=== PATIENT | female | born 1980 | race Caucasian/White ===

== ENCOUNTER 2016-04-13 14:57 | Emergency (ER) | payer MEDICAID ==
--- NOTE | 2016-04-13 16:27 | RAD ---
Indication: Cough, chest pain. 2 views of the chest are reviewed. Dual-energy PA views were obtained. Comparison is made with previous exam dated December 17, 2008. No mediastinal shift is noted. Heart is of normal size and configuration. Lung simental appear clear. IMPRESSION: No active cardiopulmonary disease is noted.
[2016-04-13 16:58] LABS: Urine Bilirubin Negative (Negative); Urine Glucose Negative (Negative); Urine Nitrite Negative (Negative)
[2016-04-13] MEDS ORDERED: Albuterol/Ipratropium NEB.SOL* Albuterol 2.5 MG/Ipratropium 0.5 MG 3 ML INH ONE (16:59)
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
[2016-04-13 17:50] LABS: Hematocrit 45 % (35-47); Mean Corpuscular HGB Conc 33 g/dl (31-36); Mean Corpuscular Hemoglobin 28 pg (27-31); Mean Corpuscular Volume 85 fL (80-97); Mean Platelet Volume 9 um3 (7.4-10.4); Red Blood Count 5.32 10^6/ul (4.0-5.4); Red Cell Distribution Width 14 % (10.5-15); White Blood Count 4.6 10^3/ul (3.5-10.8)
[2016-04-13 18:06] LABS: ALT 15 U/L (7-52); AST 23 U/L (13-39); Albumin 4.3 g/dL (3.2-5.2); Alkaline Phosphatase 90 U/L (34-104); Anion Gap 9 mmol/L (2-11); BUN/Creatinine Ratio 12.8 (8-20); Blood Urea Nitrogen 10 mg/dL (6-24); C Reactive Protein 6.61 mg/L (< 5.00); CO2 Carbon Dioxide 23 mmol/L (22-32); Calcium 9.7 mg/dL (8.6-10.3); Chloride 102 mmol/L (101-111); EGFR African American 108.1 (>60); Globulin 3.4 g/dL (2-4); Glucose 82 mg/dL (70-100); Lipase 10 U/L (11.0-82.0); Potassium 3.3 mmol/L (3.5-5.0); Sodium 134 mmol/L (133-145); Total Protein 7.7 g/dL (6.4-8.9)
[2016-04-13 18:08] LABS: Troponin I 0.01 ng/mL (<0.04)
[2016-04-13] MEDS ORDERED: Oseltamivir CAP* 75 MG PO ONE (18:20)
[2016-04-13] MEDS ORDERED: Ketorolac INJ* 30 MG/ML 1 ML VIAL IV PUSH ONE (18:20)
--- NOTE | 2016-04-13 19:01 | RAD ---
Indication: Left lower quadrant pain. CT of the abdomen and pelvis was performed without oral or IV contrast administration. Coronal and sagittal reconstructed images were obtained. Lung simental demonstrate emphysematous changes. No pleural fluid is identified. The heart demonstrates no pericardial effusion. The liver is normal in size. No focal lesions or intrahepatic ductal dilatation is noted. Gallbladder demonstrates no calcified gallstones. No pericholecystic fluid or wall thickening is identified. The spleen is normal in size. Pancreas demonstrates no mass or pancreatic duct dilatation. The common duct is not dilated. No adrenal lesions are noted. The kidneys demonstrates no hydronephrosis or calculi in either kidney. Aorta and inferior vena cava are unremarkable. No abnormally dilated loops of bowel are noted. CT of the pelvis demonstrates diverticulosis without definite evidence of diverticulitis. There is suggestion of a left ovarian cyst measuring up to 3.9 cm. The left ovary may also be enlarged. No free fluid is identified. The colon is filled with stool. IMPRESSION: No evidence of obstructive uropathy is noted. There is suggestion of a 3.9 cm cyst in the left ovary with suggestion of an enlarged left ovary. No definite diverticulitis is noted. Evaluation is limited due to lack of oral and IV contrast.
[2016-04-13 20:06] VITALS: BP 132/80
== END 2016-04-13 20:02 | disposition home or self-care (01) ==
LOC: ED 14:57
DX: J09.X2 Influenza due to identified novel influenza A virus with other respiratory manifestations (principal); N83.209 Unspecified ovarian cyst, unspecified side; R10.32 Left lower quadrant pain; F17.210 Nicotine dependence, cigarettes, uncomplicated; R11.10 Vomiting, unspecified; R19.7 Diarrhea, unspecified; R05 Cough
CPT/HCPCS: 36415; 71020; 74176; 80053; 81003; 83605; 83690; 84484; 84702; 85025; 86140; 87502; 93005; 94640; 96374; 99283; A9270-GY; J1885

== ENCOUNTER 2016-04-21 12:21 | Emergency (ER) | payer MEDICAID ==
[2016-04-21 12:38] VITALS: BP 130/88
--- NOTE | 2016-04-21 13:04 | UC ---
Respiratory Complaint HPI - HPI Summary HPI Summary: Dx with influenza 04/13/16 in the ED. At that time had fever, n/v, cough, trouble breathing. Has continued to have productive cough, achy chest, and chills. Does not feel better after tamiflu. - History of Current Complaint Chief Complaint: UCRespiratory Stated Complaint: FLU-LIKE SYMPTOMS,V&D,WEAK Time Seen by Provider: 04/21/16 12:41 Hx Obtained From: Patient Hx Last Menstrual Period: 04/16/16 ?: No Onset/Duration: Gradual Onset, Lasting Weeks Timing: Constant Severity Initially: Moderate Severity Currently: Moderate Character: Cough: Productive Aggravating Factors: Exertion, Deep Breaths, Recumbent Position Associated Signs And Symptoms: Positive: Fever - resolved, Wheezing, URI, Nasal Congestion - Allergies/Home Medications Allergies/Adverse Reactions: Allergies Allergy/AdvReac Type Severity Reaction Status Date / Time Sulfamethoxazole Allergy Intermediate SWELLING, Verified 04/21/16 12:38 w/Trimethoprim RASH, [From Bactrim] ITCHING Penicillins Allergy Swelling Verified 04/21/16 12:38 Of Face,Lips,& Throat bee sting Allergy Swelling Uncoded 04/21/16 12:38 Of Face,Lips,& Throat PMH/Surg Hx/FS Hx/Imm Hx Cardiovascular History Of: Reports: Hypertension Respiratory History Of: Reports: COPD, Asthma GI/ History Of: Denies: Gall Bladder Disease, Kidney Stones Psychological History Of: Reports: Depression, Bipolar Disorder - Surgical History Surgical History: None - Family History Known Family History: Positive: Cardiac Disease - father, Respiratory Disease - Father - at 58 y.o. - emphysema w/ recurrent pneumonia, Other - MOTHER - BIPOLAR, SCHIZOAFFECTIVE - Social History Occupation: Unemployed Alcohol Use: None Substance Use Type: Marijuana Substance Use Comment - Amount & Last Used: just prior to arrival Smoking Status (MU): Current Every Day Smoker Type: Cigarettes Amount Used/How Often: 1 1/2 ppd Length of Time of Smoking/Using Tobacco: "Way to long" Household Exposure Type: Cigarettes Cessation Counseling: Counseled 3+Min - 10 Min - Immunization History Most Recent Influenza Vaccination: pt states she does not know Most Recent Tetanus Shot: pt states she does not know Most Recent Pneumonia Vaccination: pt states she does not know Review of Systems Constitutional: Fever, Chills, Fatigue Skin: Negative Eyes: Negative ENT: Nasal Discharge Respiratory: Shortness Of Breath, Cough Cardiovascular: Negative Gastrointestinal: Vomiting Genitourinary: Negative Motor: Negative Neurovascular: Negative Musculoskeletal: Negative Neurological: Negative Psychological: Negative All Other Systems Reviewed And Are Negative: Yes Physical Exam Triage Information Reviewed: Yes Appearance: No Pain Distress, Well-Nourished Vital Signs: Initial Vital Signs Temp 98 F 04/21/16 12:32 Pulse 67 04/21/16 12:32 Resp 20 04/21/16 12:32 BP 130/88 04/21/16 12:32 Pulse Ox 100 04/21/16 12:32 Vital Signs Reviewed: Yes Eye Exam: Normal Eyes: Positive: Conjunctiva Clear ENT: Positive: Hearing grossly normal, Pharynx normal, Nasal congestion, Nasal drainage, TMs normal Dental Exam: Normal Neck exam: Normal Neck: Positive: Supple, Nontender, No Lymphadenopathy Respiratory: Positive: No respiratory distress, Rhonchi - throughout, Wheezing - minimal Cardiovascular Exam: Normal Cardiovascular: Positive: RRR, No Murmur Abdomen Description: Positive: Soft. Negative: CVA Tenderness (R), CVA Tenderness (L) Musculoskeletal Exam: Normal Neurological Exam: Normal Psychological Exam: Normal Skin Exam: Normal UC Diagnostic Evaluation - Laboratory O2 Sat by Pulse Oximetry: 100 Respiratory Course/Dx - Differential Dx/Diagnosis Provider Diagnoses: Influenza, resolving. COPD exacerbation Discharge - Discharge Plan Condition: Stable Disposition: HOME Prescriptions: Azithromycin TAB* [Zithromax TAB*] 250 mg PO SEE INSTRUCTIONS #6 tab predniSONE TAB* [Deltasone TAB*] 50 mg PO DAILY #5 tab Patient Education Materials: Influenza (ED), COPD (Chronic Obstructive Pulmonary Disease) (ED) Referrals: No Primary Care Phys,NOPCP [Primary Care Provider] - Additional Instructions: Call or return if you develop increasing fever, shortness of breath, chest pain , bloody sputum, or otherwise worsen. If you have not improved at all after several days, contact your primary care physician or return here.
== END 2016-04-21 13:04 | disposition home or self-care (01) ==
LOC: UCEAST 12:21
DX: J11.1 Influenza due to unidentified influenza virus with other respiratory manifestations (principal); J44.1 Chronic obstructive pulmonary disease with (acute) exacerbation; Z88.0 Allergy status to penicillin; Z88.2 Allergy status to sulfonamides; F12.90 Cannabis use, unspecified, uncomplicated; F17.210 Nicotine dependence, cigarettes, uncomplicated; Z71.6 Tobacco abuse counseling
CPT/HCPCS: 99212; G0463

== ENCOUNTER 2018-08-31 15:03 | Emergency (ER) | payer OTHER ==
[2018-08-31 15:45] VITALS: BP 134/84
--- NOTE | 2018-08-31 16:36 | UC ---
Lower Extremity/Ankle HPI - HPI Summary HPI Summary: Pt presents with c/o left ankle pain and left posterior calf pain s/p slipping down a flight of stairs yesterday. Pt denies hitting her head or LOC. - History of Current Complaint Chief Complaint: UCLowerExtremity Stated Complaint: LEFT ANKLE CONCERN/COUGH,CONGESTION Time Seen by Provider: 08/31/18 16:07 Hx Obtained From: Patient Hx Last Menstrual Period: 08/26/18 ?: No Onset/Duration: Sudden Onset Severity Initially: Moderate Severity Currently: Severe Pain Intensity: 10 Aggravating Factor(s): Standing, Ambulation Alleviating Factor(s): Rest Able to Bear Weight: Yes - painful - Risk Factors Gout Risk Factors: Negative DVT Risk Factors: Negative Septic Arthritis Risk Factor: Negative - Allergies/Home Medications Allergies/Adverse Reactions: Allergies Allergy/AdvReac Type Severity Reaction Status Date / Time Penicillins Allergy Swelling Verified 08/31/18 15:40 Of Face,Lips,& Throat sulfamethoxazole Allergy swelling, Verified 08/31/18 15:40 [From Bactrim] rash, itching trimethoprim [From Bactrim] Allergy swelling, Verified 08/31/18 15:40 rash, itching bee sting Allergy Swelling Uncoded 08/31/18 15:40 Of Face,Lips,& Throat PMH/Surg Hx/FS Hx/Imm Hx Previously Healthy: Yes - Surgical History Surgical History: Yes Surgery Procedure, Year, and Place: TUBAL - Family History Known Family History: Positive: Cardiac Disease - father, Respiratory Disease - Father - at 58 y.o. - emphysema w/ recurrent pneumonia, Other - MOTHER - BIPOLAR, SCHIZOAFFECTIVE - Social History Occupation: Unemployed Lives: With Family Alcohol Use: None Substance Use Type: None Substance Use Comment - Amount & Last Used: just prior to arrival Smoking Status (MU): Never Smoked Tobacco Type: Cigarettes Amount Used/How Often: 1/2 ppd Length of Time of Smoking/Using Tobacco: 21 yrs Have You Smoked in the Last Year: Yes Household Exposure Type: Cigarettes - Immunization History Most Recent Influenza Vaccination: pt states she does not know Most Recent Tetanus Shot: pt states she does not know Most Recent Pneumonia Vaccination: pt states she does not know Vaccination Up to Date: Yes Review of Systems All Other Systems Reviewed And Are Negative: Yes Constitutional: Positive: Negative Skin: Positive: Negative Eyes: Positive: Negative ENT: Positive: Negative Respiratory: Positive: Negative Cardiovascular: Positive: Negative Gastrointestinal: Positive: Negative Genitourinary: Positive: Negative Motor: Positive: Decreased ROM - left ankle Neurovascular: Positive: Negative Musculoskeletal: Positive: Arthralgia - left ankle, Decreased ROM - left ankle, Edema - left ankle/lateral, Myalgia Neurological: Positive: Negative Psychological: Positive: Negative Is Patient Immunocompromised?: No Physical Exam Triage Information Reviewed: Yes Appearance: Pain Distress Vital Signs: Initial Vital Signs Temp 99.3 F 08/31/18 15:41 Pulse 72 08/31/18 15:41 Resp 16 08/31/18 15:41 BP 134/84 08/31/18 15:41 Pulse Ox 100 08/31/18 15:41 Vital Signs Reviewed: Yes Eye Exam: Normal ENT: Positive: Hearing grossly normal Respiratory: Positive: No respiratory distress Musculoskeletal: Positive: ROM Limited @ - left ankle, Edema @ - left lateral malleolus Neurological Exam: Normal Psychological Exam: Normal Skin Exam: Normal Diagnostics - Radiology No standard instances Radiology Interpretation Completed By: Radiologist - IMPRESSION: No fracture of the left ankle is noted. Lower Extremity Course/Dx - Differential Dx/Diagnosis Differential Diagnosis/HQI/PQRI: Fracture (Closed), Sprain, Strain Provider Diagnosis: Left ankle sprain Discharge - Sign-Out/Discharge Documenting (check all that apply): Patient Departure All imaging exams completed and their final reports reviewed: Yes - Discharge Plan Condition: Stable Disposition: HOME Patient Education Materials: Ankle Sprain (ED), R.I.C.E. Treatment (ED) Referrals: [facility] [place] [facility] [Outside] - If Needed Jeff Gleason MD [Medical Doctor] - If Needed No Primary Care Phys,NOPCP [Primary Care Provider] - Additional Instructions: Please follow up with your PCP or the orthopedic provider if your symptoms do not improve. - Billing Disposition and Condition Condition: STABLE Disposition: Home
== END 2018-08-31 17:03 | disposition home or self-care (01) ==
LOC: UCCORT 15:03
DX: S93.402A Sprain of unspecified ligament of left ankle, initial encounter (principal); W10.9XXA Fall (on) (from) unspecified stairs and steps, initial encounter; Y92.9 Unspecified place or not applicable; F17.210 Nicotine dependence, cigarettes, uncomplicated
CPT/HCPCS: 99213; G0463

== ENCOUNTER 2018-10-23 15:33 | Emergency (ER) | payer OTHER ==
[2018-10-23 16:34] LABS: Urine Appearance Cloudy; Urine Bilirubin Negative (Negative); Urine Blood Negative (Negative); Urine Color Yellow; Urine Glucose Negative (Negative); Urine Ketones Trace (Negative); Urine Nitrite Negative (Negative); Urine Protein Negative (Negative); Urine Specific Gravity 1.023 (1.010-1.030); Urine Urobilinogen Positive (Negative)
[2018-10-23 16:42] LABS: ALT 8 U/L (7-52); AST 14 U/L (13-39); Albumin 4.4 g/dL (3.2-5.2); Albumin/Globulin Ratio 1.6 (1-3); Alkaline Phosphatase 84 U/L (34-104); Anion Gap 6 mmol/L (2-11); BUN/Creatinine Ratio 17.3 (8-20); Blood Urea Nitrogen 13 mg/dL (6-24); CO2 Carbon Dioxide 25 mmol/L (22-32); Calcium 9.6 mg/dL (8.6-10.3); Chloride 106 mmol/L (101-111); EGFR African American 104.6 (>60); EGFR Non-African American 86.5 (>60); Globulin 2.7 g/dL (2-4); Glucose 90 mg/dL (70-100); Potassium 3.7 mmol/L (3.5-5.0); Sodium 137 mmol/L (135-145); Total Protein 7.1 g/dL (6.4-8.9)
[2018-10-23 16:50] LABS: ABS Basophils 0.1 10^3/ul (0-0.2); ABS Eosinophils 0.6 10^3/ul (0-0.6); ABS Lymphocytes 1.9 10^3/ul (1.0-4.8); ABS Monocytes 0.4 10^3/ul (0-0.8); Eosinophil % 7.3 %; Hematocrit 29 % (35-47); Hemoglobin 8.7 g/dL (12.0-16.0); Lymphocyte % 23.7 %; Mean Corpuscular HGB Conc 30 g/dL (31-36); Mean Corpuscular Hemoglobin 18 pg (27-31); Mean Corpuscular Volume 60 fL (80-97); Mean Platelet Volume 8.8 fL (7.4-10.4); Platelet Count 194 10^3/uL (150-450); Red Blood Count 4.91 10^6 /uL (3.70-4.87); Red Cell Distribution Width 19 % (10-15)
[2018-10-23 17:04] LABS: Urine Benzodiazepine Screen None Detected (None Detect); Urine Opiates Screen None Detected (None Detect)
[2018-10-23 17:08] LABS: Acetaminophen < 15 mcg/mL; Alcohol < 10 mg/dL (<10); Salicylate < 2.50 mg/dL (<30)
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
[2018-10-23 17:22] LABS: TSH (Thyroid Stimulating Horm) 0.99 mcIU/mL (0.34-5.60)
[2018-10-23 17:51] LABS: Microcytosis 2+; Polychromasia 1+
--- NOTE | 2018-10-23 19:01 | ED ---
Progress - Progress Note Progress Note: patient signed out by anton pending MHE. patient will be discharge home after evaluation per MH. Course/Dx - Course Course Of Treatment: Pt. presenting for MHE. Medically cleared. Pending MHE. after mental health patient will be discharge home per dr martin. - Diagnoses Provider Diagnoses: Depression Discharge ED - Sign-Out/Discharge Documenting (check all that apply): Patient Departure, Receiving Sign-Out Receiving patient FROM: Anton Fischer Patient Received Moderate/Deep Sedation with Procedure: No - Discharge Plan Condition: Stable Disposition: HOME Referrals: No Primary Care Phys,NOPCP [Primary Care Provider] - - Billing Disposition and Condition Condition: STABLE Disposition: Home
[2018-10-23 22:50] VITALS: BP 125/74
== END 2018-10-23 22:48 | disposition home or self-care (01) ==
LOC: ED 15:33
DX: F31.9 Bipolar disorder, unspecified (principal); D64.9 Anemia, unspecified; I10 Essential (primary) hypertension; J44.9 Chronic obstructive pulmonary disease, unspecified; Z88.0 Allergy status to penicillin; Z88.2 Allergy status to sulfonamides; Z91.030 Bee allergy status
CPT/HCPCS: 36415; 80053; 80307; 80320; 80329; 81003; 84443; 85025; 99284; G0480

== ENCOUNTER 2018-11-02 20:13 | Emergency (ER) | payer OTHER ==
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
[2018-11-02] MEDS ORDERED: Ketorolac INJ* 30 MG/ML 1 ML VIAL IV ONE (21:15)
[2018-11-02] MEDS ORDERED: NS 0.9% 1000 ML** 1,000 ML IV ONE (21:15)
[2018-11-02] MEDS ORDERED: methylPREDNISolone 125 MG* 2 ML VIAL IV ONE (21:15)
[2018-11-02] MEDS ORDERED: Albuterol/Ipratropium NEB.SOL* Albuterol 2.5 MG/Ipratropium 0.5 MG 3 ML INH ONE (21:15)
[2018-11-02 21:21] LABS: ABS Basophils 0.1 10^3/ul (0-0.2); ABS Eosinophils 0.7 10^3/ul (0-0.6); ABS Lymphocytes 2.4 10^3/ul (1.0-4.8); ABS Monocytes 0.4 10^3/ul (0-0.8); ABS Neutrophils 4.8 10^3/ul (1.5-7.7); Eosinophil % 8.7 %; Hematocrit 29 % (35-47); Hemoglobin 9.1 g/dL (12.0-16.0); Lymphocyte % 28.3 %; Mean Corpuscular HGB Conc 32 g/dL (31-36); Mean Corpuscular Hemoglobin 19 pg (27-31); Mean Corpuscular Volume 60 fL (80-97); Mean Platelet Volume 9.5 fL (7.4-10.4); Nucleated Red Blood Cells % 0.1; Platelet Count 168 10^3/uL (150-450); Red Blood Count 4.74 10^6 /uL (3.70-4.87); Red Cell Distribution Width 19 % (10-15); White Blood Count 8.5 10^3/uL (3.5-10.8)
[2018-11-02 21:27] LABS: ALT 7 U/L (7-52); Albumin/Globulin Ratio 1.7 (1-3); Alkaline Phosphatase 92 U/L (34-104); BUN/Creatinine Ratio 17.8 (8-20); Blood Urea Nitrogen 13 mg/dL (6-24); C Reactive Protein 1.36 mg/L (<8.01); CO2 Carbon Dioxide 24 mmol/L (22-32); Calcium 9.2 mg/dL (8.6-10.3); Chloride 107 mmol/L (101-111); EGFR Non-African American 89.2 (>60); Globulin 2.4 g/dL (2-4); Glucose 89 mg/dL (70-100); Sodium 136 mmol/L (135-145); Total Protein 6.4 g/dL (6.4-8.9)
[2018-11-02 21:33] LABS: HCG Pregnancy < 0.60 mIU/mL
[2018-11-02 21:45] LABS: Anion Gap 5 mmol/L (2-11)
[2018-11-02 22:17] LABS: Urine Appearance Clear; Urine Bilirubin Negative (Negative); Urine Blood Negative (Negative); Urine Color Straw; Urine Glucose Negative (Negative); Urine Ketones Negative (Negative); Urine Nitrite Negative (Negative); Urine Protein Negative (Negative); Urine Specific Gravity 1.004 (1.010-1.030); Urine Urobilinogen Negative (Negative)
[2018-11-02] MEDS ORDERED: Azithromycin TAB* 250 MG PO ONE (22:38)
[2018-11-02 22:58] VITALS: BP 117/68
== END 2018-11-02 23:07 | disposition home or self-care (01) ==
LOC: ED 20:13
DX: J45.901 Unspecified asthma with (acute) exacerbation (principal); N83.202 Unspecified ovarian cyst, left side; D64.9 Anemia, unspecified; I10 Essential (primary) hypertension; J44.9 Chronic obstructive pulmonary disease, unspecified; F31.9 Bipolar disorder, unspecified; F17.210 Nicotine dependence, cigarettes, uncomplicated; Z79.899 Other long term (current) drug therapy; Z88.1 Allergy status to other antibiotic agents; Z88.0 Allergy status to penicillin; Z88.2 Allergy status to sulfonamides
CPT/HCPCS: 36415; 71046; 76856; 80053; 81003; 83605; 83690; 84702; 85025; 86140; 96361; 96374; 96375; 99283; A9270-GY; J1885; J2930

== ENCOUNTER 2018-11-07 20:46 | Emergency (ER) | payer OTHER ==
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
[2018-11-07 21:44] LABS: ABS Lymphocytes 0.7 10^3/ul (1.0-4.8); ABS Monocytes 0.2 10^3/ul (0-0.8); ABS Neutrophils 8.4 10^3/ul (1.5-7.7); Eosinophil % 0.2 %; Hematocrit 30 % (35-47); Hemoglobin 8.2 g/dL (12.0-16.0); Lymphocyte % 6.9 %; Mean Corpuscular HGB Conc 28 g/dL (31-36); Mean Corpuscular Hemoglobin 18 pg (27-31); Mean Corpuscular Volume 64 fL (80-97); Mean Platelet Volume 9.1 fL (7.4-10.4); Nucleated Red Blood Cells % 0.1; Platelet Count 179 10^3/uL (150-450); Red Blood Count 4.68 10^6 /uL (3.70-4.87); Red Cell Distribution Width 20 % (10-15); White Blood Count 9.4 10^3/uL (3.5-10.8)
[2018-11-07 21:52] LABS: ALT 8 U/L (7-52); AST 11 U/L (13-39); Albumin/Globulin Ratio 1.7 (1-3); Alkaline Phosphatase 87 U/L (34-104); Anion Gap 9 mmol/L (2-11); BUN/Creatinine Ratio 21.4 (8-20); Blood Urea Nitrogen 18 mg/dL (6-24); CO2 Carbon Dioxide 22 mmol/L (22-32); Chloride 107 mmol/L (101-111); EGFR African American 91.8 (>60); EGFR Non-African American 75.9 (>60); Globulin 2.4 g/dL (2-4); Glucose 118 mg/dL (70-100); Potassium 4.2 mmol/L (3.5-5.0); Sodium 138 mmol/L (135-145); Total Protein 6.4 g/dL (6.4-8.9)
[2018-11-07 21:59] LABS: HCG Pregnancy < 0.60 mIU/mL
[2018-11-07 22:37] LABS: Urine Appearance Clear; Urine Bacteria Absent (Absent); Urine Bilirubin Negative (Negative); Urine Blood 1+ (Negative); Urine Color Yellow; Urine Glucose Negative (Negative); Urine Ketones Trace (Negative); Urine Nitrite Negative (Negative); Urine Protein Negative (Negative); Urine Red Blood Cell Trace(0-2/hpf) (Absent); Urine Specific Gravity 1.024 (1.010-1.030); Urine Squamous Epithelial Cell Present (Absent); Urine Urobilinogen Positive (Negative); Urine White Blood Cell Absent (Absent)
[2018-11-07 22:44] VITALS: BP 129/59
[2018-11-08 13:47] LABS: Chlamydia trachomatis NAA Negative (Negative); Neisseria gonorrhoeae (GC) NAA Negative (Negative)
== END 2018-11-07 22:43 | disposition home or self-care (01) ==
LOC: ED 20:46
DX: N93.9 Abnormal uterine and vaginal bleeding, unspecified (principal); N83.202 Unspecified ovarian cyst, left side; D64.9 Anemia, unspecified; I10 Essential (primary) hypertension; J44.9 Chronic obstructive pulmonary disease, unspecified; F17.210 Nicotine dependence, cigarettes, uncomplicated
CPT/HCPCS: 36415; 80053; 81003; 81015; 84702; 85025; 87480; 87491; 87510; 87591; 87661; 99283

== ENCOUNTER 2018-11-08 18:32 | Emergency (ER) | payer OTHER ==
[2018-11-08 19:28] LABS: ABS Basophils 0.2 10^3/ul (0-0.2); ABS Eosinophils 0.3 10^3/ul (0-0.6); ABS Lymphocytes 3.6 10^3/ul (1.0-4.8); ABS Monocytes 0.7 10^3/ul (0-0.8); ABS Neutrophils 6.8 10^3/ul (1.5-7.7); Eosinophil % 2.6 %; Hematocrit 27 % (35-47); Hemoglobin 8.4 g/dL (12.0-16.0); Lymphocyte % 31.3 %; Mean Corpuscular HGB Conc 31 g/dL (31-36); Mean Corpuscular Hemoglobin 18 pg (27-31); Mean Corpuscular Volume 59 fL (80-97); Mean Platelet Volume 9.1 fL (7.4-10.4); Nucleated Red Blood Cells % 0.1; Platelet Count 197 10^3/uL (150-450); Red Blood Count 4.63 10^6 /uL (3.70-4.87); Red Cell Distribution Width 19 % (10-15); White Blood Count 11.6 10^3/uL (3.5-10.8)
[2018-11-08 19:31] LABS: Urine Appearance Cloudy; Urine Bacteria Absent (Absent); Urine Bilirubin Negative (Negative); Urine Blood 2+ (Negative); Urine Color Yellow; Urine Glucose Negative (Negative); Urine Ketones Trace (Negative); Urine Nitrite Negative (Negative); Urine Protein Negative (Negative); Urine Red Blood Cell 2+(6-10/hpf) (Absent); Urine Specific Gravity 1.025 (1.010-1.030); Urine Squamous Epithelial Cell Present (Absent); Urine Urobilinogen Positive (Negative); Urine White Blood Cell Trace(0-5/hpf) (Absent)
[2018-11-08 19:42] LABS: ALT 8 U/L (7-52); AST 13 U/L (13-39); Albumin 3.9 g/dL (3.2-5.2); Albumin/Globulin Ratio 1.5 (1-3); Alkaline Phosphatase 82 U/L (34-104); Anion Gap 7 mmol/L (2-11); BUN/Creatinine Ratio 19.8 (8-20); Blood Urea Nitrogen 18 mg/dL (6-24); CO2 Carbon Dioxide 26 mmol/L (22-32); Calcium 8.6 mg/dL (8.6-10.3); Chloride 106 mmol/L (101-111); EGFR African American 83.7 (>60); EGFR Non-African American 69.2 (>60); Globulin 2.6 g/dL (2-4); Glucose 102 mg/dL (70-100); Potassium 3.3 mmol/L (3.5-5.0); Sodium 139 mmol/L (135-145); Total Protein 6.5 g/dL (6.4-8.9)
[2018-11-08 19:43] LABS: Urine Benzodiazepine Screen None Detected (None Detect); Urine Opiates Screen None Detected (None Detect)
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
[2018-11-08 20:08] LABS: Alcohol < 10 mg/dL (<10); Salicylate < 2.50 mg/dL (<30)
[2018-11-08 20:28] LABS: Acetaminophen < 15 mcg/mL
--- NOTE | 2018-11-08 21:50 | ED ---
Progress - Progress Note Progress Note: Pt is a sign out from Dr. August pending MHE and disposition. Psych evaluation has been completed. Pt will be discharged with PCP follow up. Pt is agreeable with this plan. Course/Dx - Course Course Of Treatment: 38 y/o F poor disorder and schizophrenia presents with suicidal ideation. Physical examination anxious w well appearing, anxious and teaful female. Will have mental health evaluate. Pt is a sign out from Dr. August pending MHE and disposition. Psych evaluation has been completed. Pt will be discharged with PCP follow up. Pt is agreeable with this plan. - Diagnoses Provider Diagnoses: Suicidal ideations, Anxiety, Depression Discharge ED - Sign-Out/Discharge Documenting (check all that apply): Patient Departure - discharge, Receiving Sign-Out Receiving patient FROM: Malena August Patient Received Moderate/Deep Sedation with Procedure: No - Discharge Plan Condition: Stable Disposition: HOME Patient Education Materials: Depression (ED), Anxiety (ED), Suicide Prevention (ED) Referrals: Care [facility] [Outside] - 3 Days Additional Instructions: Per completion of a mental health evaluation, you are cleared for release and do not require inpatient psychiatric hospitalization at this time. Please go to nearest emergency room or call 911 if safety concerns arise or condition worsens. First thing in the morning, please call : [facility].............. [phone] For follow up. Important Phone Numbers: [facility] [phone] Suicide Prevention and Crisis Services........................ [phone] National Suicide Prevention Lifeline............................ 656-601-KLLR (4919) [facility]....................... [phone] Alcoholics Anonymous............................................... [phone] [facility].............. [phone] [place] [employer].............................................. Substance Abuse Treatment Programs [facility] [phone] Alcohol and Drug [facility] - Billing Disposition and Condition Condition: STABLE Disposition: Home - Attestation Statements Document Initiated by Melvae: Yes Documenting Scribe: Jeuss Bella Provider For Whom Brandy is Documenting (Include Credential): Franko Hdez MD Scribe Attestation: Jesus Stone, scribed for Franko Hdez MD on 11/09/18 at 0246. Scribe Documentation Reviewed: Yes Provider Attestation: The documentation as recorded by the Jesus fox accurately reflects the service I personally performed and the decisions made by me, Franko Hdez MD Status of Scribe Document: Viewed
[2018-11-08] MEDS ORDERED: Nicotine* 4MG (FRUIT FLAVOR) GUM PO PRN (23:05)
[2018-11-09] MEDS ORDERED: Lurasidone(*) 20 MG TAB PO ONE (00:45)
[2018-11-09] MEDS ORDERED: diPHENhydraMINE PO* 50 MG PO ONE (02:49)
[2018-11-09 03:05] VITALS: BP 127/61
--- NOTE | 2018-11-09 14:05 | PN ---
Progress Note - Progress Note Date of Service: 11/07/18 Note: Vaginal culture positive for gardnerella. I called and spoke with pt. today at 1402. Rx for flagyl sent to pharmacy. Pt. understands and agrees with plan.
== END 2018-11-09 03:18 | disposition home or self-care (01) ==
LOC: ED 18:32
DX: R45.851 Suicidal ideations (principal); F41.9 Anxiety disorder, unspecified; F32.9 Major depressive disorder, single episode, unspecified; F20.9 Schizophrenia, unspecified; D64.9 Anemia, unspecified; I10 Essential (primary) hypertension; J44.9 Chronic obstructive pulmonary disease, unspecified; Z98.51 Tubal ligation status; F17.210 Nicotine dependence, cigarettes, uncomplicated; Z79.899 Other long term (current) drug therapy; Z88.1 Allergy status to other antibiotic agents; Z88.0 Allergy status to penicillin; Z88.2 Allergy status to sulfonamides
CPT/HCPCS: 36415; 80053; 80307; 80320; 80329; 81003; 84443; 85025; 87077; 87086; 99285; A9270-GY; G0480

== ENCOUNTER 2018-11-09 16:56 | Inpatient (IN) | payer OTHER ==
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
[2018-11-09 17:41] LABS: Urine Appearance Cloudy; Urine Bacteria Absent (Absent); Urine Bilirubin Negative (Negative); Urine Blood 2+ (Negative); Urine Color Yellow; Urine Glucose Negative (Negative); Urine Ketones Negative (Negative); Urine Nitrite Negative (Negative); Urine Protein Negative (Negative); Urine Red Blood Cell Trace(0-2/hpf) (Absent); Urine Specific Gravity 1.017 (1.010-1.030); Urine Squamous Epithelial Cell Present (Absent); Urine Urobilinogen Negative (Negative); Urine White Blood Cell Trace(0-5/hpf) (Absent)
[2018-11-09 17:47] LABS: ABS Basophils 0.2 10^3/ul (0-0.2); ABS Eosinophils 0.5 10^3/ul (0-0.6); ABS Monocytes 0.7 10^3/ul (0-0.8); ABS Neutrophils 6.1 10^3/ul (1.5-7.7); Eosinophil % 4.4 %; Hematocrit 29 % (35-47); Hemoglobin 8.8 g/dL (12.0-16.0); Lymphocyte % 28.6 %; Mean Corpuscular HGB Conc 31 g/dL (31-36); Mean Corpuscular Hemoglobin 18 pg (27-31); Mean Corpuscular Volume 59 fL (80-97); Mean Platelet Volume 9.6 fL (7.4-10.4); Platelet Count 201 10^3/uL (150-450); Red Blood Count 4.82 10^6 /uL (3.70-4.87); Red Cell Distribution Width 19 % (10-15); White Blood Count 10.4 10^3/uL (3.5-10.8)
[2018-11-09 17:52] LABS: Urine Benzodiazepine Screen None Detected (None Detect); Urine Opiates Screen None Detected (None Detect)
[2018-11-09 17:55] LABS: ALT 8 U/L (7-52); AST 11 U/L (13-39); Albumin 4.1 g/dL (3.2-5.2); Albumin/Globulin Ratio 1.6 (1-3); Alkaline Phosphatase 77 U/L (34-104); Anion Gap 4 mmol/L (2-11); Blood Urea Nitrogen 16 mg/dL (6-24); CO2 Carbon Dioxide 27 mmol/L (22-32); Calcium 8.8 mg/dL (8.6-10.3); Chloride 105 mmol/L (101-111); EGFR African American 91.8 (>60); EGFR Non-African American 75.9 (>60); Globulin 2.5 g/dL (2-4); Glucose 105 mg/dL (70-100); Potassium 3.8 mmol/L (3.5-5.0); Sodium 136 mmol/L (135-145); Total Protein 6.6 g/dL (6.4-8.9)
[2018-11-09 18:08] LABS: Acetaminophen < 15 mcg/mL; Alcohol < 10 mg/dL (<10); Salicylate < 2.50 mg/dL (<30)
[2018-11-09 18:23] LABS: TSH (Thyroid Stimulating Horm) 2.06 mcIU/mL (0.34-5.60)
[2018-11-09] MEDS ORDERED: Acetaminophen TAB* 325 MG PO PRN (21:35)
[2018-11-09] MEDS ORDERED: Ibuprofen TAB* 800 MG PO PRN (21:36)
[2018-11-09] MEDS ORDERED: Al Hydrox/Mg Hydrox/Simet LIQ* 30 ML UDC PO PRN (21:36)
[2018-11-09] MEDS ORDERED: Albuterol 2.5 MG/3 ML NEB.SOL* (0.083%) INH PRN (21:37)
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
[2018-11-11] MEDS: Multivitamins/Minerals TAB PO SCH ×2 (07:32→09:37)
[2018-11-11] MEDS ORDERED: Lurasidone(*) 40 MG TAB PO SCH (09:00)
[2018-11-11] MEDS ORDERED: hydrOXYzine HCL TAB* 50 MG PO PRN (17:42)
[2018-11-12 09:21] VITALS: BP 136/73
[2018-11-12] MEDS: Multivitamins/Minerals TAB PO SCH (10:14)
--- NOTE | 2018-11-12 11:03 | PN ---
Subjective - Subjective Date of Service: 11/12/18 Service Type: 59935 Hosp care 15 min low complexity Subjective: Vangie Zhao entered her 72 hour notice on the 10 of November. She must be released , rescind the notice, or be taken to court by the . Vangie Zhao wants to leave mostly because she wants to be with her 1-year-old child and so "I can be the best mommy." When challenged by how she could have come to the hospital three times previously with suicidal thoughts and a desire to jump into traffic and to get her "meds adjusted." She was given 40 mg of Latuda and now is happy. She is unwilling to go higher ("I couldn't do it!"). Objective - General Observations Appearance: Neat Appears Stated Age: Yes Stature: WNL Posture: WNL Eye Contact: Intense Behavior/Activity: Peculiar, Agitated - Interaction Observations Attitude Towards Examiner: Cooperative, Anxious, Defensive Stated Mood: Dysphoric, Anxious Affect: Labile Speech Pattern/Tone: Clear, Perseverating, Loud Volume Thought Process: Coherent, Circumstantial, Miranda Perception: WNL Thought Content: Preoccupation/Ruminations Hallucination Type: None Delusion Type: None - Cognitive Function Orientation: A&O x 4 Level of Consciousness: Awake, Alert, Appropriate Cognition: Impaired Cognition Estimated Intelligence: Borderline Range Insight: Difficulty Acknowledging Presence of Psyciatric Problems Judgment Within Normal Limits: No Ability to Make Reasonable Decisions: Moderately Impaired - Medication Compliance Cooperative with Inpatient Medication Regimen: Yes - Group Participation Participates in Group Activities: Partial Assessment - Assessment Merits Inpatient Hospitalization: For Immediate Safety Inpatient DSM-V Dx: F31.9 Clinical Impression: Vangie Zhao is a 38-year-old woman with a 1-year-old child who has come to the emergency department multiple times with complaints of suicidal ideation with threats to walk into traffic and reported impulsivity, and is on the unit with a desire to restart Latuda 40 mg and then be discharged. Plan - Plan Treatment Plan: Name: VANGIE ROBLEDO Birthdate: 1980 [id number] Vangie Zhao has a 72-hour notice in. We need to plan on next steps to retain or release her. She will be discharged today. Continued Medication Management: Continue Outpt Medication Medications: Current Medications Acetaminophen (Tylenol Tab*) 650 mg PO Q4H PRN PRN Reason: PAIN; OR TEMP >101 Al Hydrox/Mg Hydrox/Simethicone (Maalox Plus*) 30 ml PO Q4H PRN PRN Reason: INDIGESTION Albuterol (Ventolin 2.5 Mg/3 Ml Neb.Becca*) 2.5 mg INH Q6H PRN PRN Reason: SOB/WHEEZING Hydroxyzine HCl (Atarax Tab*) 50 mg PO Q6H PRN PRN Reason: .ANXIETY Ibuprofen (Motrin Tab*) 800 mg PO Q8H PRN PRN Reason: PAIN - MODERATE Lurasidone HCl (Latuda) 40 mg PO DAILY [facility] Last Admin: 11/11/18 09:37 Dose: 40 mg Multivitamins/Minerals (Theragran/Minerals Tab*) 1 tab PO DAILY [facility] Last Admin: 11/12/18 10:14 Dose: 1 tab
--- NOTE | 2018-11-13 14:21 | DS ---
DISCHARGE SUMMARY: DATE OF ADMISSION: 11/09/18 DATE OF DISCHARGE: 11/12/18 PROVIDER: Jessie Edwards NP in Psychiatry. SUPERVISING PHYSICIAN: Dr. Bryant Smith.* (DICTATED BY JESSIE EDWARDS NP ) DIAGNOSIS: Bipolar 1 disorder. CONDITION AT THE TIME OF DISCHARGE: Improved, psychiatrically cleared, excitable, participated in groups, social with peers. She is eager for discharge. She did well here psychiatrically, no med changes were made. She will be attending [facility]. MENTAL STATUS EXAM: At the time of discharge, Vangie Zhao is excited. She is cooperative and makes very good eye contact. She is alert and oriented x4. Her grooming is adequate. Her speech pace is rapid. Her thought processes are logical. Her speech is pressured. She is not psychotic or delusional. She denies AH, VH, SI, and HI. Her insight and judgment are fair. She is willing to follow up and urged to see a therapist. DISCHARGE INSTRUCTIONS FOR THE PATIENT: A. Medications: 1. Albuterol 2.5 mg/3 mL nebulizer solution inhaled q. 6 hours p.r.n. shortness of breath or wheezing. 2. Albuterol inhaler 1 puff q. 6 hours p.r.n. shortness of breath or wheezing. 3. Ibuprofen 800 mg q. 8 hours p.r.n. moderate pain. 4. Latuda 40 mg at bedtime. 5. Flagyl 500 mg b.i.d. 6. Prednisone 40 mg daily. 7. Tramadol 50 mg q.12 hours p.r.n. severe pain. B. Diet is regular. C. Activities as tolerated. She is a non-smoker. There are no studies pending at the time of discharge. D. Follow-up care. She has an appointment with [facility] on Monday11/13/18 at 11:15 with Mercedes Braden. She also has an appointment with Dr. Johnson on 11/15/18 at 2 p.m. E. Disposition. She is going to her home where her child is and she lives next door to her mother. F. Substance abuse followup is not indicated. HOSPITAL COURSE: Part A: Chief complaint: "I called the people at [facility] and I told them I was going to run into traffic or overdose on medications, they came to my house with the police and the ambulance drove me here." Ms. Mi is known to the adult inpatient psychiatric unit from previous patient psychiatric admissions. She has diagnoses of intellectual disability, substance use disorders and consideration for PTSD. Last admission here was in 2016. She is currently prescribed Latuda 40 mg daily. She complains that she has felt unstable in her mood with high anxiety and difficulty with sleep and she has presented at least on 3 occasions before last night to request adjustment in her medications and she states each time she was discharged with referral to [facility], so she decided to call the emergency outreach services last night to "be taken seriously." She is very vague about her description of her symptoms. She informed this senior medical writer that she had submitted her 72-hour notice because she misses home and she misses being with her daughter. Part B. Psychiatric treatment was rendered: Vangie Zhao was admitted to the adult behavioral unit and placed on 15-minute checks for safety. Vangie Zhao missed her daughter very much, submitted a 72-hour notice indicating that that was the case and that she wanted to be "the best mommy." Vangie Zhao was excitable when told that she would be discharged. She did not have suicidal thoughts. She could not explain what changed other than she realized that last that what she had to live for was her daughter and that ending her life would be incompatible with that goal. I did discuss with her the possibility of increasing Latuda to 60 or 80 and she declined that saying it would be too much for her. No medication changes were made on this unit. The one she came in with were continued and nothing was discontinued She is on an atypical antipsychotic, so it should be noted that her hemoglobin A1c is 5.9, triglycerides are 89, cholesterol 135, LDL cholesterol 70, HDL cholesterol 47. Also her TSH is 2.06. Her toxicology screen reported a positive for cannabinoids. We did not meet with the family and no consults were entered. Vangie Zhao is improved. She no longer has urges to run into traffic. She states that she has the protective factor of her daughter to keep in mind. Although she originally requested a med change upon admission, she no longer wanted that upon discharge. I am curious about her commitment to taking medications every day and also curious about the impact that using marijuana is having on her thought processes. Nevertheless, she is future oriented and eager to share photos of her daughter as well as stories about that. She sat in the milieu loudly stating her delight that she is being discharged, rocking ecstatically back and forth on the chair even when chastened to please be careful because she might fall over. This excited behavior continued until her time of discharge. Vangie Zhao is wished well and we anticipate that her few days here were helpful. JESSIE EDWARDS, SALO [id number]/CPS #: [id number] MARYANN
== END 2018-11-12 14:30 | disposition home or self-care (01) | DRG 753 ==
LOC: ED 16:56 → BSU 20:20
PROVIDERS: ADMIT Psychiatry & Neurology Psychiatry; ATTEND Psychiatry & Neurology Psychiatry
DX: F31.9 Bipolar disorder, unspecified (principal); R45.851 Suicidal ideations; F41.9 Anxiety disorder, unspecified; J44.9 Chronic obstructive pulmonary disease, unspecified; F17.210 Nicotine dependence, cigarettes, uncomplicated; I10 Essential (primary) hypertension; E66.9 Obesity, unspecified; D50.9 Iron deficiency anemia, unspecified; F12.90 Cannabis use, unspecified, uncomplicated; F70 Mild intellectual disabilities; F43.10 Post-traumatic stress disorder, unspecified; Z79.52 Long term (current) use of systemic steroids; Z91.5 Personal history of self-harm; Z91.14 Patient's other noncompliance with medication regimen; Z91.410 Personal history of adult physical and sexual abuse; Z88.0 Allergy status to penicillin; Z88.1 Allergy status to other antibiotic agents; Z88.8 Allergy status to other drugs, medicaments and biological substances; Z68.27 Body mass index [BMI] 27.0-27.9, adult; Z81.8 Family history of other mental and behavioral disorders; Z91.19 Patient's noncompliance with other medical treatment and regimen; Z88.2 Allergy status to sulfonamides; Z91.030 Bee allergy status; Z82.49 Family history of ischemic heart disease and other diseases of the circulatory system; Z82.5 Family history of asthma and other chronic lower respiratory diseases
CPT/HCPCS: 36415; 80053; 80061; 80307; 80320; 80329; 81003; 81015; 83036; 84443; 85025; 99222; 99238; 99285; A9270-GY; G0480

== ENCOUNTER 2018-11-23 18:04 | Emergency (ER) | payer OTHER ==
[2018-11-23] MEDS ORDERED: Ketorolac *IM* INJ* 60 MG/2 ML VIAL IM ONE (18:09)
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
[2018-11-23 20:36] VITALS: BP 110/53
== END 2018-11-23 20:35 | disposition home or self-care (01) ==
LOC: ED 18:04
DX: S93.401A Sprain of unspecified ligament of right ankle, initial encounter (principal); X58.XXXA Exposure to other specified factors, initial encounter; Y92.9 Unspecified place or not applicable; D64.9 Anemia, unspecified; I10 Essential (primary) hypertension; J44.9 Chronic obstructive pulmonary disease, unspecified; Z88.0 Allergy status to penicillin; Z88.2 Allergy status to sulfonamides; Z88.1 Allergy status to other antibiotic agents; Z91.030 Bee allergy status; F17.210 Nicotine dependence, cigarettes, uncomplicated
CPT/HCPCS: 99282; J1885

== ENCOUNTER 2019-01-11 21:00 | Emergency (ER) | payer MEDICARE, MEDICAID ==
--- OUTSIDE RECORDS SUMMARY | 2019-01-11 21:07 | XMS REPORT ---
:1980 Author Name [place] [address] Care Team Providers Name Role Phone Mercedes Braden Unavailable Unavailable Elizabeth, Graham Unavailable Unavailable Allergies, Adverse Reactions, Alerts Allergy Code CodeSystem Reaction Severity Status Substance RxNorm Medications Medication Medication Medication Start Route Dose Status Fill Code CodeSystem Date Instructions RxNorm NoCurrentDosage No NoCurrentFrequency Longer Active Latuda RxNorm oral 40 mg tablet No for 30 Longer day(s) Active Latuda RxNorm 2019- oral 20 mg 1 tablet Active Take 1 tablet 7-09 once a day by mouth once a day for 30 day(s) Hospital Discharge Medications Medication Direction Start Date Status Indications Fill Instuctions No Discharge Medication Problems Problem Name Code CodeSystem Start Date End Date Status SNOMED-CT 2018-05-11 Active SNOMED-CT 2018-07-27 Active SNOMED-CT 2018-07-27 Active SNOMED-CT 2018-07-27 Active SNOMED-CT 2018-07-27 Active SNOMED-CT 2018-07-27 Active SNOMED-CT 2018-07-27 Active SNOMED-CT 2018-07-27 Active SNOMED-CT 2018-09-18 Active Laboratory Values/Results Test Test Code Code System Actual Result Date LOINC Procedures Procedure Name Code CodeSystem Target Site Date of Procedure SNOMED-CT () 2018-06-14 SNOMED-CT () 2018-06-25 SNOMED-CT () 2018-07-03 SNOMED-CT () 2018-07-12 SNOMED-CT () 2018-08-09 SNOMED-CT () 2018-08-28 SNOMED-CT () 2018-10-23 SNOMED-CT () 2018-10-23 SNOMED-CT () 2018-11-09 SNOMED-CT () 2018-11-13 Encounter Diagnosis Code CodeSystem Description Date Finding Finding Code Status 23393 CPT Non-Billable - SNOMED-CT Active 1 Vital Signs Vitals Date Value Immunizations Vaccine Name Vaccine Code CodeSystem Date Status Social History Element Description Start Date End Date Code CodeSystem Description SNOMED-CT Hospital Discharge Instructions Reason For Referral
[2019-01-11 21:13] VITALS: BP 136/73
--- NOTE | 2019-01-11 21:17 | UC ---
Dental HPI - HPI Summary HPI Summary: Nose: Her toddler head butted her yesterday and pt feels nose is broken. nose and cheeks are tender to touch. she denies bruising, vision changes, change in smell, swelling. tooth pain: has had issues w/ her teeth for quite some time. has dental appt next week but feels a new pain and thinks an abscess burst in her mouth today. - History of Current Complaint Chief Complaint: UCDentalProblem Stated Complaint: TOOTHACHE, NOSE INJURY Time Seen by Provider: 01/11/19 21:03 Hx Obtained From: Patient Hx Last Menstrual Period: 01/05/19 Pain Intensity: 10 Pain Scale Used: 0-10 Numeric Aggravating Factor(s): Nothing Alleviating Factor(s): Nothing - Allergies/Home Medications Allergies/Adverse Reactions: Allergies Allergy/AdvReac Type Severity Reaction Status Date / Time Penicillins Allergy Swelling Verified 01/11/19 21:13 Of Face,Lips,& Throat sulfamethoxazole Allergy swelling, Verified 01/11/19 21:13 [From Bactrim] rash, itching trimethoprim [From Bactrim] Allergy swelling, Verified 01/11/19 21:13 rash, itching bee sting Allergy Swelling Uncoded 01/11/19 21:13 Of Face,Lips,& Throat Home Medications: Home Medications Acetaminophen [Tylophen] 1,000 mg PO DAILY WITH MEAL 01/11/19 [History Confirmed 01/11/19] PMH/Surg Hx/FS Hx/Imm Hx Previously Healthy: Yes Respiratory History: Asthma - Surgical History Surgical History: Yes Surgery Procedure, Year, and Place: TUBAL. c-sectionx1 2017 [place] - Family History Known Family History: Positive: Cardiac Disease - father, Respiratory Disease - Father - at 58 y.o. - emphysema w/ recurrent pneumonia, Other - MOTHER - BIPOLAR, SCHIZOAFFECTIVE - Social History Alcohol Use: None Substance Use Type: Marijuana Substance Use Comment - Amount & Last Used: prior usage Smoking Status (MU): Heavy Every Day Tobacco Smoker Type: Cigarettes Amount Used/How Often: 1/2 ppd Length of Time of Smoking/Using Tobacco: 21 yrs Have You Smoked in the Last Year: Yes Household Exposure Type: Cigarettes - Immunization History Most Recent Influenza Vaccination: pt states she does not know Most Recent Tetanus Shot: pt states she does not know Most Recent Pneumonia Vaccination: pt states she does not know Vaccination Up to Date: Yes Review of Systems All Other Systems Reviewed And Are Negative: Yes Constitutional: Negative: Fever ENT: Positive: Dental Pain, Sinus Pain/Tenderness. Negative: Epistaxis, Sore Throat, Sinus Congestion Respiratory: Negative: Shortness Of Breath, Cough Neurological: Negative: Headache Physical Exam Triage Information Reviewed: Yes Appearance: Well-Appearing Vital Signs: Initial Vital Signs Temp 99.1 F 01/11/19 21:08 Pulse 67 01/11/19 21:08 Resp 18 01/11/19 21:08 BP 136/73 01/11/19 21:08 Pulse Ox 99 01/11/19 21:08 Vital Signs Reviewed: Yes ENT: Positive: Sinus tenderness, Other - nasal bone tenderness. Negative: Nasal congestion, Nasal drainage Dental: Positive: Other: - gum pain at R bottom R Neck: Positive: Supple, Nontender, No Lymphadenopathy Respiratory Exam: Normal Cardiovascular Exam: Normal Dental Complaint Course/Dx - Course Course Of Treatment: Nasal pain after toddler head butted her yesterday. No obvious nasal bone fracture on xray today but final read will be done tomorrow. No bruising on face today, but exam +tenderness. HAs appt w/ dental next week so advised to see them for her tooth pain, no obvious signs of abscess. - Differential Dx/Diagnosis Differential Diagnosis/Dx: Dental Caries Provider Diagnosis: Nasal pain, Tooth pain Discharge ED - Sign-Out/Discharge Documenting (check all that apply): Patient Departure All imaging exams completed and their final reports reviewed: No - Discharge Plan Condition: Good Disposition: HOME Patient Education Materials: Nasal Fracture (ED) Referrals: No Primary Care Phys,NOPCP [Primary Care Provider] - Additional Instructions: Please keep your appt with your dentist. - Billing Disposition and Condition Condition: GOOD Disposition: Home
--- NOTE | 2019-01-12 09:43 | UC ---
- Progress Note Progress Note: Final x-ray report reviewed X-ray nasal bone: Indication: Facial injury. 3 views of the nasal bones demonstrates no definite fracture. Paranasal sinuses are clear. Nasal spine is intact. IMPRESSION: No fracture of the nasal bones is identified. RN to call patient and confirm findings as discussed in the visit last night. Course/Dx - Diagnoses Provider Diagnoses: Nasal pain, Tooth pain Discharge ED - Sign-Out/Discharge Documenting (check all that apply): Post-Discharge Follow Up All imaging exams completed and their final reports reviewed: Yes - Discharge Plan Condition: Good Disposition: HOME Patient Education Materials: Nasal Fracture (ED) Referrals: No Primary Care Phys,NOPCP [Primary Care Provider] - Additional Instructions: Please keep your appt with your dentist. - Billing Disposition and Condition Condition: GOOD Disposition: Home
== END 2019-01-11 21:53 | disposition home or self-care (01) ==
LOC: UCEAST 21:00
DX: K08.89 Other specified disorders of teeth and supporting structures (principal); J34.89 Other specified disorders of nose and nasal sinuses; J45.909 Unspecified asthma, uncomplicated; F17.210 Nicotine dependence, cigarettes, uncomplicated; Z88.0 Allergy status to penicillin; Z88.2 Allergy status to sulfonamides; Z91.030 Bee allergy status
CPT/HCPCS: 70160; 99211; G0463

== ENCOUNTER 2019-01-25 15:23 | Emergency (ER) | payer MEDICARE, MEDICAID ==
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
[2019-01-25 17:16] LABS: Urine Appearance Clear; Urine Bilirubin Negative (Negative); Urine Blood Negative (Negative); Urine Color Yellow; Urine Glucose Negative (Negative); Urine Ketones Negative (Negative); Urine Nitrite Negative (Negative); Urine Protein Negative (Negative); Urine Specific Gravity 1.023 (1.010-1.030); Urine Urobilinogen Negative (Negative)
[2019-01-25 17:47] LABS: ABS Basophils 0.1 10^3/ul (0-0.2); ABS Eosinophils 0.4 10^3/ul (0-0.6); ABS Lymphocytes 1.5 10^3/ul (1.0-4.8); ABS Monocytes 0.4 10^3/ul (0-0.8); ABS Neutrophils 4.3 10^3/ul (1.5-7.7); Eosinophil % 6.6 %; Hematocrit 31 % (35-47); Hemoglobin 9.2 g/dL (12.0-16.0); Mean Corpuscular HGB Conc 30 g/dL (31-36); Mean Corpuscular Hemoglobin 20 pg (27-31); Mean Corpuscular Volume 66 fL (80-97); Mean Platelet Volume 8.8 fL (7.4-10.4); Nucleated Red Blood Cells % 0.1; Platelet Count 179 10^3/uL (150-450); Red Cell Distribution Width 23 % (10-15); White Blood Count 6.7 10^3/uL (3.5-10.8)
[2019-01-25 18:03] LABS: Urine Benzodiazepine Screen None Detected (None Detect); Urine Opiates Screen None Detected (None Detect)
[2019-01-25 18:05] LABS: ALT 10 U/L (7-52); AST 16 U/L (13-39); Albumin 3.9 g/dL (3.2-5.2); Albumin/Globulin Ratio 1.3 (1-3); Alkaline Phosphatase 113 U/L (34-104); Anion Gap 4 mmol/L (2-11); BUN/Creatinine Ratio 22.2 (8-20); Blood Urea Nitrogen 18 mg/dL (6-24); CO2 Carbon Dioxide 26 mmol/L (22-32); Chloride 107 mmol/L (101-111); EGFR African American 95.7 (>60); EGFR Non-African American 79.1 (>60); Globulin 2.9 g/dL (2-4); Glucose 90 mg/dL (70-100); Potassium 3.5 mmol/L (3.5-5.0); Sodium 137 mmol/L (135-145); Total Protein 6.8 g/dL (6.4-8.9)
[2019-01-25 18:20] LABS: Alcohol < 10 mg/dL (<10); Salicylate < 2.50 mg/dL (<30)
[2019-01-25 18:34] LABS: TSH (Thyroid Stimulating Horm) 1.17 mcIU/mL (0.34-5.60)
[2019-01-25] MEDS ORDERED: Nicotine* 4MG (FRUIT FLAVOR) GUM PO PRN (18:54)
--- NOTE | 2019-01-25 19:06 | ED ---
Progress - Progress Note Progress Note: This patient was signed out to Dr. Lockett from Dr. Coombs at shift change on 08/08 at 1900 awaiting MHE and disposition. Re-Evaluation - Re-Evaluation First Eval Re-Evaluation Time: 16:23 Comment: Pt is medically cleared. Second Eval Re-Evaluation Time: 20:57 Change: Unchanged Comment: Pt was moved to annex room 20. Course/Dx - Course Course Of Treatment: This patient was signed out to Dr. Lockett from Dr. Coombs at shift change on 01/25/19 at 1900 awaiting MHE and disposition. 2320. Pt is trying to make out in the annex according to psych. Pt states that she is willing to stay in her own room and states that she needs some help cleaning her room after spilling her soda. Made threats about wanting to punch/hit the psych staff. Pt began crying and was inconsolable after her bf was moved to room 19. - Diagnoses Provider Diagnoses: Depression - Provider Notifications Discussed Care Of Patient With: Gentry Puga Time Discussed With Above Provider: 01:28 Instructed by Provider To: Transfer - [facility], involuntary Admit/Transition Orders Completed By ED Provider: Yes Discharge ED - Sign-Out/Discharge Documenting (check all that apply): Patient Departure - Transfer to [facility] , Receiving Sign-Out Receiving patient FROM: Minh Coombs - Discharge Plan Condition: Stable Disposition: PSYCHIATRIC FACILITY-OTHER Referrals: No Primary Care Phys,[facility]OPCP [Primary Care Provider] - - Billing Disposition and Condition Condition: STABLE Disposition: Psychiatric Facility Other - Attestation Statements Document Initiated by Scribe: Yes Documenting Scribe: Javon Perez Provider For Whom Scribe is Documenting (Include Credential): GIULIA Johnson Scribe Attestation: Javon Stone, scribed for GIULIA Johnson on 01/26/19 at 0413. Scribe Documentation Reviewed: Yes Provider Attestation: The documentation as recorded by the Javon fox accurately reflects the service I personally performed and the decisions made by me, GIULIA Johnson Status of Scribe Document: Viewed Procedures - Sedation Patient Received Moderate/Deep Sedation with Procedure: No
[2019-01-25 19:34] LABS: Acetaminophen < 15 mcg/mL
[2019-01-26 06:21] VITALS: BP 131/68
== END 2019-01-26 04:15 ==
LOC: ED 15:23
DX: F32.9 Major depressive disorder, single episode, unspecified (principal); R45.851 Suicidal ideations; I10 Essential (primary) hypertension; F20.9 Schizophrenia, unspecified; Z88.0 Allergy status to penicillin; Z88.2 Allergy status to sulfonamides; Z91.030 Bee allergy status; Z81.8 Family history of other mental and behavioral disorders; F17.210 Nicotine dependence, cigarettes, uncomplicated
CPT/HCPCS: 36415; 80053; 80307; 80320; 80329; 81003; 84443; 85025; 99285; A9270-GY; G0480

== ENCOUNTER 2019-02-25 18:44 | Emergency (ER) | payer MEDICARE, MEDICAID ==
--- OUTSIDE RECORDS SUMMARY | 2019-02-25 19:06 | XMS REPORT | Summary of Care ---
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 weight were taken and skin assessment was done. The belongings were counted and locked in the lock box. Pt was cooperative with the admission process by answering the questions and was oriented to the unit. Pt denies any Si, Hi, or AVH. Pt agreed to seek help with staff when feeling to hurt self or others. Pt was oriented to the Unit, pt was given the informative package and placed on 15 minutes checks. Pt is resting in the room at the moments. 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 documented in this encounter Results POCT glucose, docked (01/26/2019 8:47 AM EST) POC Glucose 216 (H) 70 - 140 mg/dL [facility] POC Specimen Whole Blood Performing Organization Address City/State/Zipcode Phone Number POINT OF CARE TEST [address] [place] [address] [facility] POC [address] [place] [address] documented in this encounter Visit Diagnoses Diagnosis Depression Depressive disorder, not elsewhere classified Benign essential HTN Essential hypertension, benign Class 1 obesity due to excess calories without serious comorbidity with body mass index (BMI) of 32.0 to 32.9 in adult COPD without exacerbation documented in this encounter Administered Medications Medication Order MAR Action Action Date Dose Rate Site acetaminophen (TYLENOL) tablet Given 01/29/2019 7:58 AM EST 650 mg 650 mg 650 mg, Oral, Every 4 hours PRN, Mild Pain (Pain Scale Score 1-3), Pain, Starting 01/26/19 at 0913, For 30 days, MDD 4, Given 01/28/2019 7:27 PM EST 650 mg Given 01/28/2019 3:15 PM EST 650 mg albuterol (PROVENTIL HFA;VENTOLIN HFA) inhaler 2 puff 2 puff, Inhalation, Every 6 hours PRN, Wheezing, Starting 01/26/19 at 0915 , For 7 days, Shake the inhaler well before each spray., budesonide-formoterol (SYMBICORT) 80-4.5 Given 01/29/2019 8:14 AM EST 2 puffs MCG/ACT inhaler 2 puff 2 puff, Inhalation, 2 Times Daily, First dose on 01/26/19 at 0945, For 14 days, Shake well before using, Given 01/28/2019 8:37 PM EST 2 puffs Given 01/28/2019 9:59 AM EST 2 puffs diphenhydrAMINE (BENADRYL) capsule 50 mg 50 mg, Oral, Nightly PRN, Itching, Starting 01/26/19 at 0914, For 30 days hydrOXYzine (ATARAX) tablet 50 mg Given 01/29/2019 7:59 AM EST 50 mg 50 mg, Oral, Every 6 hours PRN, Anxiety, Sleep, Starting 01/26/19 at 0913, For 30 days Given 01/27/2019 3:04 PM EST 50 mg Given 01/26/2019 6:32 PM EST 50 mg lurasidone HCl (LATUDA) tablet 40 mg Given 01/28/2019 8:37 PM EST 40 mg 40 mg, Oral, Every evening, First dose (after last modification) on 01/27/19 at 2100, For 30 doses, Administer with food., Given 01/27/2019 8:55 PM EST 40 mg magnesium hydroxide (MILK OF MAGNESIA) 400 MG/5ML suspension 30 mL 30 mL, Oral, Daily PRN, Constipation, Starting 01/26/19 at 0913, For 30 days , If serum creatinine > 2 notify provider before administering., nicotine (NICOTROL) inhaler 1 puff Given 01/28/2019 11:27 AM EST 1 puff 1 puff, Inhalation, PRN, Smoking cessation, Starting 01/26/19 at 0937, For 30 days, May puff cartridge for up to 20 minutes. Each cartridge delivers 4 mg Avoid use between hours of 2200 and 0600 due to stimulant effects Do not exceed 16 cartridges/day, Given 01/27/2019 11:10 AM EST 1 puff Given 01/26/2019 6:32 PM EST 1 puff documented in this encounter
--- OUTSIDE RECORDS SUMMARY | 2019-02-25 19:06 | XMS REPORT | Summary of Care ---
:1980 Author Organization [facility] Address [address] [place] [address] Care Team Providers Name Role Phone Nathaniel German MD Primary Care Provider Reason for Visit Auth/Cert Status Reason Specialty Diagnoses / Procedures Referred By Contact Referred To Contact Diagnoses Suicidal with plan to overdose Suicidal ideation Encounter Details Date Type Department Care Team Description 02/03/2019 - Hospital Encounter [facility] Daina Munguia MD [address] [place] [address] [id number] 02/11/[address] Ayesha Maurer MD [address] [place], [place] [address] [place] [address] Allergies Active Allergy Reactions Severity Noted Date Comments Sulfamethoxazole-Trimethoprim 11/20/2015 Bee Venom 11/20/2015 Penicillins 11/20/2015 documented as of this encounter (statuses as of 02/11/2019) Medications Medication Sig Dispensed Refills Start Date End Date Status Albuterol Inhale 2 puffs 1 Inhaler 0 01/29/2019 Active Sulfate HFA 108 into the lungs 0 (90 Base) every 6 (six) MCG/ACT hours as Inhalation needed for Aerosol Solution Wheezing (PROVENTIL HFA;VENTOLIN HFA) Budesonide-Formo Inhale 2 puffs 1 Inhaler 0 01/29/2019 Active terol Fumarate into the lungs 0 80-4.5 MCG/ACT Two Times Inhalation Daily Aerosol (SYMBICORT) hydrOXYzine HCl Take 1 tablet 30 tablet 0 02/11/2019 Active 50 MG Oral by mouth every 0 Tablet (ATARAX) 6 (six) hours as needed for Anxiety (Sleep) for up to 10 days Benztropine Take 1 tablet 10 tablet 0 02/11/2019 Active Mesylate 1 MG by mouth Two 0 Oral Tablet times daily as (COGENTIN) needed Nicotine 10 MG Inhale 1 puff 42 each 0 02/11/2019 Active Inhalation into the lungs 0 Inhaler as needed for (NICOTROL) Smoking cessation risperiDONE 1 MG Take 1 tablet 60 tablet 0 02/11/2019 Active Oral Tablet by mouth Two 0 (RISPERDAL) Times Daily Vitamin D Take 1 capsule 3 capsule 0 02/11/2019 Active (Ergocalciferol) by mouth every 1.25 MG (28358 7 (seven) days UT) Oral Capsule (ERGOCALCIFEROL) hydrOXYzine HCl Take 1 tablet 30 tablet 0 01/29/2019 Discontinued 50 MG Oral by mouth every 9 Tablet (ATARAX) 6 (six) hours as needed for Anxiety (Sleep) for up to 10 days Lurasidone HCl Take 1 tablet 30 tablet 1 01/29/2019 Discontinued 40 MG Oral by mouth every 9 (Stop Taking at Tablet (LATUDA) evening Discharge) Nicotine Take 1 each by 100 tablet 0 01/29/2019 Discontinued Polacrilex 2 MG mouth as 9 (Stop Taking at Mouth/Throat Gum needed for Discharge) (NICORELIEF) Smoking cessation documented as of this encounter (statuses as of 02/11/2019) Active Problems Problem Noted Date Substance use disorder 02/05/2019 Overview: 02/05/2019-Vangie reports a history of abusing marijuana, meth amphetamine and crack cocaine. She uses cannabis daily. She reports previous inpatient substance abuse treatment attempts at [facility] and "someplace in [place]." She has not used cocaine or methamphetamine in a couple of years per her report. Suicidal ideation 02/03/2019 Overview: 02/03/19-nursing admission notes: She reports she was discharged too soon from [facility] (she was discharged on 01/29/19.) She reports suicidal ideation with a plan to jump off of a bridge. At [facility], she had a plan to overdose on medication. She was noted to be hyper-verbal with pressured speech. She is restless and had difficulty sitting still during the admission, asking several times "are we almost done yet?" Depression 01/26/2019 Benign essential HTN 01/26/2019 Class 1 obesity due to excess calories without serious comorbidity with 2018 body mass index (BMI) of 33.0 to 33.9 in adult COPD without exacerbation 01/26/2019 Bipolar disorder by history Overview: Vangie Mi Pt brought herself to the [facility] and reported that she had all of her meds with her and she was going to overdose. Her one year old daughter was with her cousin. Pt reported to Ed nancy t she was depressed, anxious and suicidal. She also reported that she felt she was discharged to [facility] on 01/29/19. Vangie reports a history of multiple inpatient hospitalizations at [facility], [facility] and [facility]. She reports a history of multiple overdose attempts. She [place] a history of cutting herself. She last cut about 2 months ago. She is in treatment at [facility]. She reports previous medication trials with Latuda, [place], Seroquel, Ativan and Depakote. History of arrest related to threatening to "blow up." the [facility] building in [facility]. documented as of this encounter (statuses as of 02/11/2019) Social History Tobacco Use Types Packs/Day Years Used Date Current Every Day Smoker 1 20 Smokeless Tobacco: Never Used Tobacco Cessation: Ready to Quit: No Alcohol Use Drinks/Week oz/Week Comments Not Currently Social Isolation Answer Date Recorded In a typical week, how many times do you Never 01/26/2019 talk on the phone with family, friends, or neighbors? How often do you get together with friends More than three times a week 01/26 or relatives? How often do you attend shinto or Never 01/26/2019 spiritism services? Do you belong to any clubs or No 01/26/2019 organizations such as shinto groups, unions, fraternal or athletic groups, or [...] troubled all the time - these days? Education Answer Date Recorded What is the highest level of school you have completed or 12th grade 2018 the highest degree you have received? Financial Resource Strain Answer Date Recorded How [...] Sign Reading Time Taken Comments Blood Pressure 121/59 02/10/2019 5:00 PM EST Pulse 86 02/10/2019 5:00 PM EST Temperature 36.8 02/10/2019 5:00 PM C (98.2 EST F) Respiratory Rate 16 02/10/2019 5:00 PM EST Oxygen Saturation 99% 02/10/2019 5:00 PM EST Inhaled Oxygen Concentration - - Weight 111.9 kg (246 lb 12.8 oz) 02/03/2019 6:00 PM EST Height 182.9 cm (6') 02/03/2019 6:00 PM EST Body Mass Index 33.47 02/03/2019 6:00 PM EST documented in this encounter Discharge Instructions Krystian Pak LCSW - 02/11/2019 7:57 AM EST You have an appointment [facility] on 02[facility]14[facility] at 11;45 a.m. Address is [address] [place] [address]. Phone number is [phone]. documented in this encounter Progress Notes Karen Oliva RN - 02/11/2019 10:32 AM ESTPatient discharged at approximately 1100. Discharge paperwork, including medications/prescriptions, safety plan, and outpatient appointment information have all been discussed with the patient. All belongings have been collected and patient verified all belongings have been accounted for. If patient had any medications in the pharmacy or belongings in the safe, they have been returned. No concerns voiced by patient at this time and states readiness for discharge. Patient escorted off the unit by staff and brought home by Medicaid cab. Natacha Crews RN - 02/11/2019 12:08 AM ESTPt. Slept most of the nite. Will continue to monitor for safety. 4: 52 AM Bari Delatorre NP - 02/10/2019 11:47 AM EST . PSY Progress Note Subjective: Ms. Mi is a 38 year old single female, mother of 1 kayce and who currently lives with her daughter near [place], [place] CC:Foot pain Interval HX: Pt was seeing and evaluated in private. She was calm and cooperative. Vangie seems to be better. She is social and visible on unit. Also, she participate actively in unit activity and groups.Pt is compliant with her medication.Pt has unwitnessed fall yesterday and she complained on pain in her R foot. X-ray was ordered and results come negative for fracture. She still complain on foot pain. Beside that, se also mentioned improvement in depression and anxiety. Vangie is focused to be discharge tomorrow. Her mood was stable. No sleeping or appetite problems noted by patient. Also, she denies any suicidal or homicidal ideation. Continue with monitoring for further evaluation and tretament . Patient Active Problem List Diagnosis Depression Benign essential HTN Class 1 obesity due to excess calories without serious comorbidity with body mass index (BMI)of 33.0 to 33.9 in adult COPD without exacerbation Suicidal ideation Bipolar disorder by history Substance use disorder Allergies: . Allergies Allergen Reactions Bactrim [Sulfamethoxazole-Trimethoprim] Bee Venom Penicillins . Current Facility-Administered Medications: acetaminophen (TYLENOL) tablet 650 mg, 650 mg, Oral, Q4H PRN, MARGE Hollins, 650 mg at 02/09/19 1553 Alum & Mag Hydroxide-Simeth (MAALOX PLUS) 200-200-20 MG/5ML suspension 30 mL, 30 mL, Oral, Q4H PRN, MARGE Hollins benztropine (COGENTIN) tablet 1 mg, 1 mg, Oral, BID PRN, Lakshmi Deutsch NP budesonide-formoterol (SYMBICORT) 80-4.5 MCG/ACT inhaler 2 puff, 2 puff , Inhalation, BID, MARGE Hollins, 2 puff at 02/09/19 0809 hydrOXYzine (ATARAX) tablet 50 mg, 50 mg, Oral, Q6H PRN, MARGE Hollins, 50 mg at 02/09/19 211 magnesium hydroxide (MILK OF MAGNESIA) 400 MG/5ML suspension 30 mL, 30 mL, Oral, Daily PRN, MARGE Hollins, 30 mL at 02/08/19 0745 nicotine (NICOTROL) inhaler 1 puff, 1 puff, Inhalation, PRN, Lakshmi Deutsch NP, 1 puff at 02/10/19 1105 ondansetron (ZOFRAN-ODT) disintegrating tablet 4 mg, 4 mg, Oral, Q6H PRN , MARGE Hollins risperidone (RISPERDAL) tablet 1 mg, 1 mg, Oral, BID, Lakshmi Deutsch NP, 1 mg at 02/10/19 0855 Review Of Systems: Medical Review Of Systems: .Review of Systems Constitutional: Negative. Respiratory: Negative. Cardiovascular: Negative. Musculoskeletal: Foot pain Psychiatric/Behavioral: Positive for substance abuse. Negative for depression, hallucinations and suicidal ideas. The patient is nervous/anxious. The patient does not have insomnia. All other systems reviewed are negative Psychiatric Review Of Systems: sleep: yes appetite changes: no weight changes: no energy/anergy: yes interest/pleasure/anhedonia: yes somatic symptoms: yes libido: yes anxiety/panic: yes, less guilty/hopeless: no S.I.B.s/risky behavior: no any drugs: no alcohol: no Objective: . Vitals: 02/09/19 1600 02/09/19 2000 02/10/19 0000 02/10/19 0400 BP: 110/66 106/70 109/66 110/72 Pulse: 92 (!) 107 85 72 Resp: 16 16 15 15 Temp: 36.9 C 37 C 36.4 C SpO2: 100% 99% 98% 95% Mental Status Exam: .General Appearance: Patient is a tall, overweight 38 y.o. female of normal build who appears the stated age. She has long, black, pulled back hair. She has good hygiene. She is sitting in a chair with normal posture.She is dressed in weather appropriate and casual clothing; pants and long sleeve shirt. Behavior: Attitude: Patient is cooperative. Psychomotor: Patient has normal gait Patient does not have psychomotor agitation, psychomotor retardation or abnormal movements. Patient exhibits fidgetiness. Patient does not exhibit agitation or restlessness. Eye Contact: Eye contact is appropriate. Patient maintains good eye contact. Speech: Patient's speech is coherent, of normal quality, fluent and spontaneous. Speech quantity: normal. Rate is normal. Volume is normal. Tone is normal. Mood: "Ok". Affect: Affect is euthymic, stable, appropriate and congruent with stated mood. Patient appears to have full range. Thought Process: Thought process is linear, coherent, goal directed and logical. Patient has racing thoughts. Patient does not have looseness of association, thought blocking and derailment of thought. Thought Content: Patient expresses preoccupations and rumination. Patient does not express active suicidal ideation, passive suicidal ideation, active homicidal ideation, passive homicidal ideation, paranoid delusions, delusions of persecution, delusions of guilt, delusions of grandiosity, somatic delusions and social phobia. Perceptions: Patient is not internally preoccupied. Patient does not have auditory hallucinations orvisual hallucinations. Cognition: Patient is awake and alert and attentive. She is oriented to place, person and time. She appears to have below average intelligence. Recent memory is intact. Remote memory is intact. She shows good concentration. Insight: Fair Judgement: Fair Gait:unsteady, due to pain in foot Muscle Tone:WNL Labs: . Recent Labs Lab 02/09/19 0547 NA 137 K 4.5 CL 104 BICARBONATE 25 CALCIUM 9.0 GLUCOSE 91 BUN 19 CREATININE 0.67 BCR 28 PROT 6.8 ALBUMIN 3.9 TBILI <0.2 ALKPHOS 112* AST 14 ALT 9 AGRATIO 1.0 GFRAA >90 GFRNONAA >90 . Recent Labs Lab 02/09/19 0547 HCT 32.6* HGB 9.8* MCH 19.7* MCHC 30.0* MCV 65.6* PLT 184 RDW 22.4* WBC 5.0 .No results for input(s): TSH, T3FREE, W3CHTWX, FREET4, V7FDQKZ in the last 168 hours. Assessment and Plan: Primary Diagnosis: DSM-5: 296.89 (F31.81) Bipolar II Disorder Treatment plan: - Psychopharmacology: Continue with established medication regiment. - Medication education: Pt was educated for benefits and side effects of medication. - Encourage patient to attend groups - Monitor for safety and efficacy - Continue with monitoring for further evaluation and treatment This will be reviewed and modified as appropriate by the treatment team and MD Mo, the attending psychiatrist today. Duration of Face to Face Time (in minutes)::20 Floor Time (in minutes): 10 [x] Greater than 50% of patient time [...] Continued behavior intolerable to patient or society [] C. High probability of A or B [...] unit [] ALC Alternate Level of Care Lynn Huynh RN - 02/10/2019 10:49 AM ESTPatient received in the milieu - she presents with even to bright mood, congruent affect. VSS, no complaints of pain. Patient is wearing hospital issued non slip socks. She has been compliant and states understanding of no fall safety precautions. Patient is medication compliant, she is eating and drinking adequate amounts Patient is visible in the milieu and social with peers. She has been actively participating in groups. Patient is ambulating safely throughout the unit. Supportive contacts with staff are intact and maintained. Natacha Crews RN - 02/10/2019 12: 37 AM ESTPt. Slept most of the nite. She roused easily when Q4h VS done at 2400 , and 0400. VSS. Will continue to monitor for safety. Bari Delatorre NP - 02/09/2019 1:15 PM EST . PSY Progress Note Subjective: Ms. Mi is a 38 year old single female, mother of 1 kayce and who currently lives with her daughter near [place], [place] CC:Foot pain Interval HX:Pt was seeing and evaluated in private of her room. She was calm and cooperative. Pt is social and visible on unit. She participate in unit activity and groups. Pt is compliant with her medication. She also mentioned improvement in her depression and anxiety since was admitted. Her mood was stable. No sleeping or appetite problems noted by patient. Also, she denies any suicidal or homicidal ideation. During the day, she complain on fall in her bathroom. Pt mentioned that she hurt her R foot. Also she mentioned having difficulty to stay on her R foot. X-ray was ordered. Continue with monitoring for further evaluation and tretament . Patient Active Problem List Diagnosis Depression Benign essential HTN Class 1 obesity due to excess calories without serious comorbidity with body mass index (BMI)of 33.0 to 33.9 in adult COPD without exacerbation Suicidal ideation Bipolar disorder by history Substance use disorder Allergies: . Allergies Allergen Reactions Bactrim [Sulfamethoxazole-Trimethoprim] Bee Venom Penicillins . Current Facility-Administered Medications: acetaminophen (TYLENOL) tablet 650 mg, 650 mg, Oral, Q4H PRN, MARGE Hollins, 650 mg at 02/09/19 1111 albuterol (PROVENTIL HFA;VENTOLIN HFA) inhaler 2 puff, 2 puff, Inhalation, Q6H PRN, Lakshmi Deutsch NP, 2 puff at 02/07/19 1704 Alum & Mag Hydroxide-Simeth (MAALOX PLUS) 200-200-20 MG/5ML suspension 30 mL, 30 mL, Oral, Q4H PRN, MARGE Hollins benztropine (COGENTIN) tablet 1 mg, 1 mg, Oral, BID PRN, Lakshmi Deutsch NP budesonide-formoterol (SYMBICORT) 80-4.5 MCG/ACT inhaler 2 puff, 2 puff , Inhalation, BID, MARGE Hollins, 2 puff at 02/09/19 0809 hydrOXYzine (ATARAX) tablet 50 mg, 50 mg, Oral, Q6H PRN, MARGE Hollins, 50 mg at 02/09/19 0717 magnesium hydroxide (MILK OF MAGNESIA) 400 MG/5ML suspension 30 mL, 30 mL, Oral, Daily PRN, MARGE Hollins, 30 mL at 02/08/19 0745 nicotine (NICOTROL) inhaler 1 puff, 1 puff, Inhalation, PRN, Lakshmi Deutsch NP, 1 puff at 02/09/19 1111 ondansetron (ZOFRAN-ODT) disintegrating tablet 4 mg, 4 mg, Oral, Q6H PRN , MARGE Hollins risperidone (RISPERDAL) tablet 1 mg, 1 mg, Oral, BID, Lakshmi Deutsch NP, 1 mg at 02/09/19 0809 Review Of Systems: Medical Review Of Systems: .Review of Systems Constitutional: Negative. Respiratory: Negative. Cardiovascular: Negative. Musculoskeletal: Foot pain Psychiatric/Behavioral: Positive for substance abuse. Negative for depression, hallucinations and suicidal ideas. The patient is nervous/anxious. The patient does not have insomnia. All other systems reviewed are negative Psychiatric Review Of Systems: sleep: yes appetite changes: no weight changes: no energy/anergy: yes interest/pleasure/anhedonia: yes somatic symptoms: yes libido: yes anxiety/panic: yes, less guilty/hopeless: no S.I.B.s/risky behavior: no any drugs: no alcohol: no Objective: . Vitals: 02/09/19 0600 02/09/19 1000 02/09/19 1141 02/09/19 1241 BP: 112/73 118/74 131/90 122/82 Pulse: 66 98 (!) 104 91 Resp: 15 17 17 17 Temp: 37 C 37.1 C SpO2: 97% Mental Status Exam: .General Appearance: Patient is a tall, overweight 38 y.o. female of normal build who appears the stated age. She has long, black, pulled back hair. She has good hygiene. She is lying down in bed withnormal posture.She is dressed in weather appropriate and casual clothing; pants and long sleeve shirt. Behavior: Attitude: Patient is cooperative. Psychomotor: Patient has normal gait Patient does not have psychomotor agitation, psychomotor retardation or abnormal movements. Patient exhibits fidgetiness. Patient does not exhibit agitation or restlessness. Eye Contact: Eye contact is appropriate. Patient maintains good eye contact. Speech: Patient's speech is coherent, of normal quality, fluent and spontaneous. Speech quantity: normal. Rate is normal. Volume is normal. Tone is normal. Mood: "Even". Affect: Affect is euthymic, stable, appropriate and congruent with stated mood. Patient appears to have full range. Thought Process: Thought process is linear, coherent, goal directed and logical. Patient has racing thoughts. Patient does not have looseness of association, thought blocking and derailment of thought. Thought Content: Patient expresses preoccupations and rumination. Patient does not express active suicidal ideation, passive suicidal ideation, active homicidal ideation, passive homicidal ideation, paranoid delusions, delusions of persecution, delusions of guilt, delusions of grandiosity, somatic delusions and social phobia. Perceptions: Patient is not internally preoccupied. Patient does not have auditory hallucinations orvisual hallucinations. Cognition: Patient is awake and alert and attentive. She is oriented to place, person and time. She appears to have below average intelligence. Recent memory is intact. Remote memory is intact. She shows good concentration. Insight: Fair Judgement: Fair Gait:unsteady, due to pain in foot Muscle Tone:WNL Labs: . Recent Labs Lab 02/09/19 0547 NA 137 K 4.5 CL 104 BICARBONATE 25 CALCIUM 9.0 GLUCOSE 91 BUN 19 CREATININE 0.67 BCR 28 PROT 6.8 ALBUMIN 3.9 TBILI <0.2 ALKPHOS 112* AST 14 ALT 9 AGRATIO 1.0 GFRAA >90 GFRNONAA >90 . Recent Labs Lab 02/09/19 0547 HCT 32.6* HGB 9.8* MCH 19.7* MCHC 30.0* MCV 65.6* PLT 184 RDW 22.4* WBC 5.0 .No results for input(s): TSH, T3FREE, C6XVZNA, FREET4, X1LHBJS in the last 168 hours. Assessment and Plan: Primary Diagnosis: DSM-5: 296.89 (F31.81) Bipolar II Disorder Treatment plan: - Psychopharmacology: Continue with established medication regiment. - Medication education: Pt was educated for benefits and side effects of medication. - Encourage patient to attend groups - Monitor for safety and efficacy - Continue with monitoring for further evaluation and treatment Secondary Diagnosis: Ankle/foot injury - X-ray of foot ordered. This will be reviewed and modified as appropriate by the treatment team and MD Mo, the attending psychiatrist today. Duration of Face to Face Time (in minutes)::20 Floor Time (in minutes): 10 [x] Greater than 50% of patient time [...] Continued behavior intolerable to patient or society [] C. High probability of A or B [...] unit [] ALC Alternate Level of Care Lynn Huynh RN - 02/09/2019 11:42 AM ESTPatient presents to the milieu with even mood, congruent affect. Patient is able to have her needs met appropriately - she is actively engaged with peers in the milieu. Patient denies SI/HI and AVH. Patient is attending to ADLs. She is compliant with medications. FALL note: Patient presented in the hallway "scooting" on her bottom, stating she "slipped in her bathroom on the wet floor". Upon examination of bathroom, the floor was dry. Fall was unwitnessed. Patient did not have non slip hospital socks on, she was wearing socks from home - that were dry. Hospital socks on dresser in her room. Right foot effected. Patient is alert, oriented times three - neuro checks normal, vital signs within normal limits. Patient complaining of 9/10 pain, able to put pressure on toes. Able to walk short distance. , Burrito Maker advised. Xrays complete Patient visible in the milieu, she is social with peers. Patient given prn tylenol for pain 9/10 with good effect pain now 5/10. Patient is laughing and joking. She is eating and drinking adequate amounts. Patient has been non compliant with wearing hospital issued non slip socks. Patient given multiple education, close observation required. Ninoska Max RN - 1:23 AM ESTRN Shift Report: Report received from previous RN at 1900. Patient was isolative to room, sleeping for the entire shift this evening. Patient was cooperative with nursing care this evening. She was compliant with scheduled medications this evening. Will continue to monitor and provide for safety. Report to be given to oncoming RN. Natacha Crews RN - 02/09/2019 12:19 AM ESTPt. Slept all nite. Labs drawn and sent. Will continue to monitor for safety. Ayesha Eli MD - 02/08/2019 8:59 AM EST PSY Progress Note Subjective: CC: " good" Interval HX: Vangie Mi has refused morning lab work. When asked "I don't know ". reports she slept "really good". Nursing team reports she is at some groups and labile in mood. She accepts the FREEDMAN perseris, encouraged her to use the nursing team as supports as she clearly has needle fear. Patient Active Problem List Diagnosis Depression Benign essential HTN Class 1 obesity due to excess calories without serious comorbidity with body mass index (BMI)of 33.0 to 33.9 in adult COPD without exacerbation Suicidal ideation Bipolar disorder by history Substance use disorder Allergies: Allergies Allergen Reactions Bactrim [Sulfamethoxazole-Trimethoprim] Bee Venom Penicillins Scheduled Med's: budesonide-formoterol 2 puff Inhalation BID risperiDONE 120 mg Subcutaneous Once risperidone 1 mg Oral BID PRN Med's:.acetaminophen (TYLENOL) tablet, albuterol, Alum & Mag Hydroxide- Simeth, benztropine, hydrOXYzine, magnesium hydroxide, nicotine, ondansetron Review Of Systems: Medical Review Of Systems: Review of Systems Constitutional: Negative. Respiratory: Negative. Cardiovascular: Negative. Psychiatric/Behavioral: Positive for substance abuse. Negative for depression, hallucinations and suicidal ideas. The patient is nervous/anxious. The patient does not have insomnia. All other systems reviewed are negative Psychiatric Review Of Systems: Sleep: no appetite changes: no weight changes: no energy/anergy: no interest/pleasure/anhedonia: no somatic symptoms: no Libido: not evaluated anxiety/panic: no Guilty/hopeless: no S.I.B.s/risky behavior no any drugs: yes alcohol: no Objective: Vitals: 02/06/19 0600 02/06/19 1900 02/07/19 0800 02/08/19 0700 BP: 102/50 98/62 130/64 125/61 BP Location: Right arm Right arm Right arm Right arm Patient Position: Lying Lying Sitting Lying Pulse: 71 77 68 69 Resp: 16 14 16 15 Temp: 37 C 37.3 C 37 C 37.1 C TempSrc: Oral Oral Oral Oral SpO2: 99% 99% 98% 98% Weight: Height: Mental Status Exam: General Appearance: Patient is a tall, overweight 38 y.o. female of normal build who appears the stated age. She has long, black, pulled back hair. She has good hygiene. She is sitting in a chair withnormal posture.She is dressed in weather appropriate and casual clothing; pants and long sleeve shirt. Behavior: Attitude: Patient is cooperative. Psychomotor: Patient has normal gait Patient does not have psychomotor agitation, psychomotor retardation or abnormal movements. Patient exhibits fidgetiness. Patient does not exhibit agitation or restlessness. Eye Contact: Eye contact is appropriate. Patient maintains good eye contact. Speech: Patient's speech is coherent, of normal quality, fluent and spontaneous. Speech quantity: voluble. Rate is rapid. Volume is loud. Tone is normal. Mood: "Even". Affect: Affect is euthymic, anxious, labile, appropriate and congruent with stated mood. Patient appears to have full range. Thought Process: Thought process is linear, coherent, goal directed and logical. Patient has racing thoughts. Patient does not have looseness of association, thought blocking and derailment of thought. Thought Content: Patient expresses preoccupations and rumination. Patient does not express active suicidal ideation, passive suicidal ideation, active homicidal ideation, passive homicidal ideation, paranoid delusions, delusions of persecution, delusions of guilt, delusions of grandiosity, somatic delusions and social phobia. Perceptions: Patient is not internally preoccupied. Patient does not have auditory hallucinations orvisual hallucinations. Cognition: Patient is awake and alert and attentive. She is oriented to place, person and time. She appears to have below average intelligence. Recent memory is intact. Remote memory is intact. She shows good concentration. Insight: Limited Judgement: Fair Gait:steady Muscle Tone: WNL Labs: .No results for input(s): NA, K, CL, BICARBONATE, CALCIUM, GLUCOSE, BUN, CREATININE, BCR, LABOSMO, PROT, ALBUMIN, TBILI, ALKPHOS, AST, ALT, AGGREGATE, AGRATIO, GFRAA, GFRNONAA in the last 168 hours. .No results for input(s): HCT, HGB, MCH, MCHC, MCV, MPV, PLT, RDW, WBCUA, WBCCAST, WBCCASTS, WBC in the last 168 hours. .No results for input(s): TSH, T3FREE, V5KGXQC, FREET4, B7GNSCE in the last 168 hours. Assessment and Plan: Primary Diagnosis: DSM-5: Unspecified Bipolar Disorder by history perseris 120 mg now and decrease oral risperidone to BID dosing. Lipids and labs for tomorrow, may need two staff for encouragement. Likely d/c Monday. Secondary diagnosis: History back pain-no complaints today. This will [...] [] Prognosis Coordination of Care provided with: [x] Nursing Staff [x] Treatment Team [ ]Social Work [] Physician(s) [x] Family [] Caregiver Justification for Continued Stay: [] A. Continued Danger to Self and/or Others [x] B. Continued behavior intolerable to patient or [...] [] [facility] Alternate Level of Care Chart, medication reviewed. Care coordinated with treatment team. The patient was noted to be still hyperactive, labile, and irritable. She had refused blood work this morning, after discussing withher the importance of keeping an eye on her metabolic status and minimizing potential risk and side effects of antipsychotic medication. She did agree that she will allow blood work for tomorrow. Thepatient also was agreeable to receive long-acting antipsychotic injection of Perseris 120 mg. I advised her that we will be cutting her oral Risperdal dose to 1 mg twice a day and that maintenance dose of Perseris for her will be 90 mg, that way she will have the smallest therapeutic dose of medication to control her symptoms and, at the same time, reduce long-term potential side effects of medication by stabilizing her and maintaining her on the lowest therapeutic dose. Patient was agreeable withthe treatment plan. She was also educated that for a few weeks, she will need to stay on oral Risperdal, until she has the therapeutic effects of the long-acting injection. Natacha Crews RN - 02/08/2019 1:15 AM ESTPt. Slept all nite. Pt. Refused AM labs saying "later" x2. Will continue to monitor for safety. Marty Barone RN - 02/07/2019 9: 40 PM ESTPatient has been isolative to her room and resting. Awake for medications and then back to sleep. She voiced no safety concerns and was med compliant. Patient will continue to be monitored for safety. Colette Amin RD - 02/07/2019 9:56 AM EST Department of Food and Nutrition Nutritional Evaluation and Care Plan REason for Review: LOS Basic Evaluation Patient is a 38 y.o. female, admitted on [id number] with a diagnosis of Depression. Past Medical History: Past Medical History: Diagnosis Date Asthma Benign essential HTN 01/26/2019 Bipolar disorder Blood transfusion without reported diagnosis Class 1 obesity due to excess calories without serious comorbidity with body mass index (BMI)of 33.0 to 33.9 in adult 01/26/2019 COPD (chronic obstructive pulmonary disease) COPD without exacerbation 01/26/2019 Hypertension Past Surgical History: Past Surgical History: Procedure Laterality Date SECTION Bilateral Home Medications: Prior to Admission medications Medication Sig Start Date End Date Taking? Authorizing Provider Albuterol Sulfate HFA 108 (90 Base) MCG/ACT Inhalation Aerosol Solution ( PROVENTIL HFA;VENTOLIN HFA)Inhale 2 puffs into the lungs every 6 (six) hours as needed for Wheezing 01/29/19 01/28/20 Yes Lakshmi Deutsch NP Budesonide-Formoterol Fumarate 80-4.5 MCG/ACT Inhalation Aerosol (SYMBICORT) Inhale 2 puffs into thelungs Two Times Daily 01/29/19 01/28/20 Yes Lakshmi Deutsch NP hydrOXYzine HCl 50 MG Oral Tablet (ATARAX) Take 1 tablet by mouth every 6 (six) hours as needed forAnxiety (Sleep) for up to 10 days 01/29/19 02/08/19 Yes Lakshmi Deutsch NP Lurasidone HCl 40 MG Oral Tablet (LATUDA) Take 1 tablet by mouth every evening 01/29/19 02/28/19 Yes Lakshmi Deutsch NP Nicotine Polacrilex 2 MG Mouth/Throat Gum (NICORELIEF) Take 1 each by mouth as needed for Smoking cessation 01/29/19 02/28/19 Lakshmi Deutsch NP Multidisciplinary Problems: Principal Problem: Depression Active Problems: Benign essential HTN Class 1 obesity due to excess calories without serious comorbidity with body mass index (BMI) of 33.0 to 33.9 in adult COPD without exacerbation Suicidal ideation Bipolar disorder by history Substance use disorder Current Diet/Tube Feed/TPN Order: Diet Age: Adult; Diet: Regular; Nursing Instructions (NOT seen by Food & Nutrition): no tomato sauce Active, Scheduled Medications: Current Facility-Administered Medications Medication Dose Route Frequency Provider Last Rate Last Dose acetaminophen (TYLENOL) tablet 650 mg 650 mg Oral Q4H PRN MARGE Hollins albuterol (PROVENTIL HFA;VENTOLIN HFA) inhaler 2 puff 2 puff Inhalation Q6H PRN Lakshmi Deutsch NP Alum & Mag Hydroxide-Simeth (MAALOX PLUS) 200-200-20 MG/5ML suspension 30 mL 30 mL Oral Q4H PRN MARGE Hollins benztropine (COGENTIN) tablet 1 mg 1 mg Oral BID PRN Lakshmi Deutsch NP budesonide-formoterol (SYMBICORT) 80-4.5 MCG/ACT inhaler 2 puff 2 puff Inhalation BID Cherri ALeone MARGE Welch 2 puff at 02/07/19 0850 hydrOXYzine (ATARAX) tablet 50 mg 50 mg Oral Q6H PRN MARGE Hollins 50 mg at 02/06/19 1130 magnesium hydroxide (MILK OF MAGNESIA) 400 MG/5ML suspension 30 mL 30 mL Oral Daily PRN MARGE [place] nicotine (NICOTROL) inhaler 1 puff 1 puff Inhalation PRN Lakshmi Deutsch NP 1 puff at 02/05/19 1613 ondansetron (ZOFRAN-ODT) disintegrating tablet 4 mg 4 mg Oral Q6H PRN MARGE Hollins risperidone (RISPERDAL) tablet 1 mg 1 mg Oral TID Lakshmi Jean Baptiste DeutschSALO 1 mg at 02/07/19 0850 Allergies: Bactrim [sulfamethoxazole-trimethoprim]; Bee venom; and Penicillins Cultural/Taoism/Ethnic food preferences: None reported. No results for input(s): NA, CL, BUN, GLUCOSE, K, BICARBONATE, CREATININE, CALCIUM, MG, PHOS, ALBUMIN, PREALBUMIN in the last 168 hours. Interview: Patient states she is doing well with her meals. Observed eating lunch today. Also went to unit kitchen to get a banana and some other items today. Reports no issues at this time. Learning or discharge needs identified: None Height: 182.9 cm Weight: 111.9 kg (246 lb 12.8 oz) Weight Method: Actual: Stand-up scale Body Mass Index: Body mass index is 33.47 kg/m. IBW Range (kg): 72.7 Weight change: 8# / 3.25% gain x 1 week. Vitals - 1 value per visit Weight (kg) 01/26/2019 108.364 kg 02/03/2019 111.948 kg Obesity or underweight? Yes BMI 30-34.99 Obesity Class I Malnutrition Identified: No Malnutrition Criteria: N/A - 2 criteria for malnutrition are not able to be presented at this time. Skin: Other: Per annotated image: Round red sore (front aspect of upper R arm), additional bruises (L side of face, R donahue) Nutrition Obstacles: None Energy/Protein Requirement based on: 72.7 kg (Upper IBW - Adj for Obesity Class I) Current Protein Needs: 1.5 g per kg body wt. = 109 g/d Current Energy Needs: 25-30 kcal per kg body wt. = 5746-5310 kcal/d Estimated Fluid Needs: 1 ml/kcal = 8530-5069 ml/d No intake/output data recorded. No intake/output data recorded. Nutrition Diagnostic Statement(s): Current risk is Low. No current nutrition diagnosis Nutrition Intervention(s): Nutrition Prescription/Diet Order: Regular, Coordination of Care: Monitor overall status for changesin appetite / intake pattern and Other: Continued opportunity to select meals to offer maximum choice. Nutrition Goal(s)/Outcome(s): Patient will maintain weight within +/- 5% during this admission. Patient's intake will be maintained at ~75% or more during this admission. Refer to Patient Education for current learning assessment and patient education needs. Refer to Care Plan for Interdisciplinary Care Plan documentation. Recommendations: 1. Regular diet, no tomato sauce per patient's request. 2. Offer and encourage to select meals to maximize choice and intake. Monitoring/Evaluation: Labs, Pt care rounds, Weight, I&O, Course and Plan of care. Nutrition will continue to monitor and assist as indicated. Ayesha Eli MD - 9:02 AM EST PSY Progress Note Subjective: CC: " know ready this time (for discharge) I feel it" Interval HX: Vangie Mi was waiting outside interview room. nursing reports Vangie slept. Vangie repeatedly states she just wants discharge to take care of her daughter. MD Maurer explained the repeated admission and concern. Vangie cites her own mother is old (56) and unable to fully care and "Help mom presents, take care DTR, makes feel not a good mom can't wrap the presents". She denies issues with Risperdal "works better than the latuda". Aware of labs tomorrow, risperidone Consta, dec oral to BID. Likelyd/c Monday. Patient Active Problem List Diagnosis Depression Benign essential HTN Class 1 obesity due to excess calories without serious comorbidity with body mass index (BMI)of 33.0 to 33.9 in adult COPD without exacerbation Suicidal ideation Bipolar disorder by history Substance use disorder Allergies: Allergies Allergen Reactions Bactrim [Sulfamethoxazole-Trimethoprim] Bee Venom Penicillins Scheduled Med's: budesonide-formoterol 2 puff Inhalation BID risperidone 1 mg Oral TID PRN Med's:.acetaminophen (TYLENOL) tablet, albuterol, Alum & Mag Hydroxide- Simeth, benztropine, hydrOXYzine, magnesium hydroxide, nicotine, ondansetron Review Of Systems: Medical Review Of Systems: Review of Systems Constitutional: Negative. Respiratory: Negative. Cardiovascular: Negative. Psychiatric/Behavioral: Positive for substance abuse. Negative for depression, hallucinations and suicidal ideas. The patient is nervous/anxious. The patient does not have insomnia. All other systems reviewed are negative Psychiatric Review Of Systems: Sleep: no appetite changes: no weight changes: no energy/anergy: no interest/pleasure/anhedonia: no somatic symptoms: no Libido: not evaluated anxiety/panic: no Guilty/hopeless: no S.I.B.s/risky behavior no any drugs: yes alcohol: no Objective: Vitals: 02/05/19 1600 02/06/19 0600 02/06/19 1900 02/07/19 0800 BP: 113/72 102/50 98/62 130/64 BP Location: Right arm Right arm Right arm Right arm Patient Position: Lying Lying Lying Sitting Pulse: 75 71 77 68 Resp: 16 16 14 16 Temp: 37 C 37.3 C 37 C TempSrc: Oral Oral Oral Oral SpO2: 94% 99% 99% 98% Weight: Height: Mental Status Exam: General Appearance: Patient is a tall, overweight 38 y.o. female of normal build who appears the stated age. She has long, black, pulled back hair. She has good hygiene. She is sitting in a chair withnormal posture.She is dressed in weather appropriate and casual clothing; pants and long sleeve shirt. Behavior: Attitude: Patient is cooperative. Psychomotor: Patient has normal gait Patient does not have psychomotor agitation, psychomotor retardation or abnormal movements. Patient exhibits fidgetiness. Patient does not exhibit agitation or restlessness. Eye Contact: Eye contact is appropriate. Patient maintains good eye contact. Speech: Patient's speech is coherent, of normal quality, fluent and spontaneous. Speech quantity: voluble. Rate is normal. Volume is loud. Tone is normal. Mood: "Even". Affect: Affect is anxious, tearful, labile, inappropriate and congruent with stated mood. Patient appears to have full range. Thought Process: Thought process is linear, coherent, goal directed and logical. Patient has racing thoughts. Patient does not have looseness of association, thought blocking and derailment of thought. Thought Content: Patient expresses preoccupations and rumination. Patient does not express active suicidal ideation, passive suicidal ideation, active homicidal ideation, passive homicidal ideation, paranoid delusions, delusions of persecution, delusions of guilt, delusions of grandiosity, somatic delusions and social phobia. Perceptions: Patient is not internally preoccupied. Patient does not have auditory hallucinations orvisual hallucinations. Cognition: Patient is awake and alert and attentive. She is oriented to place, person and time. She appears to have below average intelligence. Recent memory is intact. Remote memory is intact. She shows good concentration. Insight: Limited Judgement: Fair Gait:steady Muscle Tone: WNL Labs: .No results for input(s): NA, K, CL, BICARBONATE, CALCIUM, GLUCOSE, BUN, CREATININE, BCR, LABOSMO, PROT, ALBUMIN, TBILI, ALKPHOS, AST, ALT, AGGREGATE, AGRATIO, GFRAA, GFRNONAA in the last 168 hours. .No results for input(s): HCT, HGB, MCH, MCHC, MCV, MPV, PLT, RDW, WBCUA, WBCCAST, WBCCASTS, WBC in the last 168 hours. .No results for input(s): TSH, T3FREE, T7IQHLB, FREET4, N6FQOEJ in the last 168 hours. Assessment and Plan: Primary Diagnosis: DSM-5: Unspecified Bipolar Disorder by history Aware of labs tomorrow, risperidone Consta, dec oral to BID. Likely d/c Monday. Secondary diagnosis: History back pain-no complaints today. This will [...] [] Prognosis Coordination of Care provided with: [x] Nursing Staff [x] Treatment Team [ ]Social Work [] Physician(s) [x] Family [] Caregiver Justification for Continued Stay: [] A. Continued Danger to Self and/or Others [x] B. Continued behavior intolerable to patient or [...] [] [facility] Alternate Level of Care Chart, medication reviewed. Care coordinated with treatment team. The patient was noted to be irritable, dubon, loud. She reported that she was feeling better and that she was ready to go home, takecare of her 1-year-old daughter, get wrapping paper for [employer] gifts, and wrap gifts for her daughter and her mom. "My mom is more than 50 years old and she cannot take care of my daughter. I needto go home and take care of her." I advised the patient that when she went home, she could not function even for a day, and landed back in the hospital, and that she needs further monitoring and stabilization, and though she is doing a little bit better, but she is not quite stable to be transitionedto outpatient. We discussed long-acting antipsychotic medication injection like Perseris, once a month, which she is receptive to, and also told her that she will need to take oral medication for 2-4 weeks, and once she had therapeutic blood level of medication, and therapeutic effects of medication, she will not need to take the oral medication and then just staying with the once a month injection. I advised the patient I am not expecting her to be ready for discharge within the next day or so, but I am expecting her to be ready for transition home by early part of this coming week. She reluctantly accepted it. I reminded her that we had a conference call with her mom yesterday and that was the agreed upon treatment. We will be monitoring her for an acute potential side effects of Perseris and Risperdal including sedation , akathisia, risk of infection, dystonia, as well as long-term side effects of tardive dyskinesia, as well as metabolic dysfunction, and regular monitoring will be important to minimize potential side effects and maximize therapeutic benefits. Also, it will be equally important for her to stay away from mood- altering substances. Natacha Crews RN - 02/07/2019 12:14 AM ESTPt. Slept all nite. Will continue to monitor for safety. Ines Walters RN - 02/06/2019 10:02 PM ESTCooperative with care. She mostly has stayed in her room. She came out for dinner then right back toher room. Chauncey Bocanegra RN - 02/06/2019 7:02 PM ESTPt awake in dayroom at start of shift. Pt states mood as "pretty good" with appropriate affect. Pt was visible for dinner and med compliant. Pt states new med is helping. Pt returned to room and restedin bed denying any safety concerns. Gregorio Granados - 02/06/2019 11:30 AM EST Spiritual Care Progress Note Health Screener: Deacon Gregorio Srinivasan Patient Name: Vangie Mi Age: 38 y.o. Sex: female Room/Bed: [facility]/2 [place] Affiliation/Tradition: None Admit Date: 02/03/2019 Referrals: Referral From: Recreational Therapy Referral To: Mckenna Srinivasan Contact Information: None Spiritual Care Assessment Spouse/Significant Other Name/Relationship: None Assessed Need for Visit: Spiritual Companionship, Mental Health Issues Patient Description: Altered Mental Status (AMS), Calm, Accepting, At Peace, Hope-filled Spiritual/Cultural/Social Issues Assessment: Participated in the Spiritual Care Session. Spiritual Care Intervention: [place], Explore/Affirm [place], Identify/ Encourage Coping, Prayer, Provide for Emotional Exp/Share Story, Provide Ministry of Pres[facility], Supportive Listening Spiritual Outcomes - Patient: Expressed feelings, [place] comforted, accompanied, [place] heard, valued, affirmed Spiritual Outcomes - Family: Not available for assessment Spiritual Care Plan Goal Goal: Identify sources of hope and support these hopes. Outcome: Spiritual Care Follow Up Follow Up: Routine visit Lynn Huynh RN - 02/06/2019 9:55 AM ESTPatient received in the milieu, she is pleasant upon approach and able to have needs met. Patient isfocused on discharge. She states she needs to go home and is feeling better. Patient claims she slept through the night. Patient has been medication compliant and she is eating and drinking adequate amounts. Patient attended groups this am. She is staying visible in the milieu, and she was assisted with doing laundry. Supportive contacts with staff are intact and maintained. 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 Interval HX: Vangie Mi followed up from the spiritual care group, Vangie states grateful for "til alive, people I can talk to if anything happens again" with "I 'm ready to go, pretty much" and Vangie talksof wanting to pack Carey presents including "big avis bear from dept". Cites she slept "all good except" for the two patients talking at 3 am "I closed my door and went right back to sleep". The increased dose "I feel so good right now, I'm going to the groups, I think this time it's going to really work for me". Call placed during the interview to Vangie iM mother. Mother calmly interacted with Vangie and was supportive as Vangie cried asking her mother to be able to come home. Asked of FREEDMAN, mother supportive of injection. MD Maurer explained options to patient and her mother. Is clear Vangie has beenon risperidone previously. Vangie Mi reports she had nightmares on Seroquel. MD Maurer identified Vangie is not stable and likely discharge around Monday if she does stabilize. Vangie states "I'll be a goodgirl" . Plan to discontinue Latuda and start risperidone 1 mg TID. She will transition to the FREEDMAN. Patient Active Problem List Diagnosis Depression Benign essential HTN Class 1 obesity due to excess calories without serious comorbidity with body mass index (BMI)of 33.0 to 33.9 in adult COPD without exacerbation Suicidal ideation Bipolar disorder by history Substance use disorder Allergies: Allergies Allergen Reactions Bactrim [Sulfamethoxazole-Trimethoprim] Bee Venom Penicillins Scheduled Med's: budesonide-formoterol 2 puff Inhalation BID lurasidone HCl 80 mg Oral QPM PRN Med's:.acetaminophen (TYLENOL) tablet, albuterol, Alum & Mag Hydroxide- Simeth, hydrOXYzine, magnesium hydroxide, nicotine, ondansetron Review Of Systems: Medical Review Of Systems: Review of Systems Constitutional: Negative. Respiratory: Negative. Cardiovascular: Negative. Psychiatric/Behavioral: Positive for substance abuse. Negative for depression, hallucinations and suicidal ideas. The patient is not nervous/anxious. All other systems reviewed are negative Psychiatric Review Of Systems: Sleep: no appetite changes: no weight changes: no energy/anergy: no interest/pleasure/anhedonia: no somatic symptoms: no Libido: not evaluated anxiety/panic: no Guilty/hopeless: no S.I.B.s/risky behavior no any drugs: yes alcohol: no Objective: Vitals: 02/04/19 1546 02/05/19 0600 02/05/19 1600 02/06/19 0600 BP: 96/62 104/71 113/72 102/50 BP Location: Right arm Right arm Right arm Right arm Patient Position: Lying Lying Lying Lying Pulse: (Abnormal) 58 65 75 71 Resp: 16 16 Temp: 36.9 C 36.8 C 37.2 C 37 C TempSrc: Oral Oral Oral Oral SpO2: 100% 99% 94% 99% Weight: Height: Mental Status Exam: General Appearance: Patient is a tall, overweight 38 y.o. female of normal build who appears the stated age. She has long, black, pulled back hair. She has good hygiene. She is sitting in a chair withnormal posture.She is dressed in weather appropriate and casual clothing; pants and long sleeve shirt. Behavior: Attitude: Patient is cooperative. Psychomotor: Patient has normal gait Patient does not have psychomotor agitation, psychomotor retardation or abnormal movements. Patient exhibits fidgetiness. Patient does not exhibit agitation or restlessness. Eye Contact: Eye contact is appropriate. Patient maintains good eye contact. Speech: Patient's speech is coherent, of normal quality, fluent and spontaneous. Speech quantity: voluble. Rate is normal. Volume is normal. Tone is normal. Mood: "Even". Affect: Affect is anxious, tearful, labile, inappropriate and congruent with stated mood. Patient appears to have full range. Thought Process: Thought process is linear, coherent, goal directed and logical. Patient has racing thoughts. Patient does not have looseness of association, thought blocking and derailment of thought. Thought Content: Patient expresses preoccupations and rumination. Patient does not express active suicidal ideation, passive suicidal ideation, active homicidal ideation, passive homicidal ideation, paranoid delusions, delusions of persecution, delusions of guilt, delusions of grandiosity, somatic delusions and social phobia. Perceptions: Patient is not internally preoccupied. Patient does not have auditory hallucinations orvisual hallucinations. Cognition: Patient is awake and alert and attentive. She is oriented to place, person and time. She appears to have below average intelligence. Recent memory is intact. Remote memory is intact. She shows good concentration. Insight: Poor Judgement: Fair Gait:steady Muscle Tone: WNL Labs: .No results for input(s): NA, K, CL, BICARBONATE, CALCIUM, GLUCOSE, BUN, CREATININE, BCR, LABOSMO, PROT, ALBUMIN, TBILI, ALKPHOS, AST, ALT, AGGREGATE, AGRATIO, GFRAA, GFRNONAA in the last 168 hours. .No results for input(s): HCT, HGB, MCH, MCHC, MCV, MPV, PLT, RDW, WBCUA, WBCCAST, WBCCASTS, WBC in the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 days Medication Order MAR Action Action Date Dose Rate Site albuterol (PROVENTIL Given 02/07/2019 5:04 PM EST 2 puffs HFA;VENTOLIN HFA) inhaler 2 puff 2 puff, Inhalation, Every 6 hours PRN, Wheezing, Starting 02/03/19 at 1856, For 6 days 16 hours, Shake the inhaler well before each spray., lurasidone HCl (LATUDA) tablet 40 mg Given 02/03/2019 9:48 PM EST 40 mg 40 mg, Oral, Every evening, First dose on 02/03/19 at 2100, For 30 days, Administer with food., lurasidone HCl (LATUDA) tablet 60 mg Given 02/04/2019 9:16 PM EST 60 mg 60 mg, Oral, Every evening, First dose (after last modification) on Mon02/04/19 at 2100, For 29 doses, Administer with food, lurasidone HCl (LATUDA) tablet 80 mg Given 02/05/2019 9:07 PM EST 80 mg 80 mg, Oral, Every evening, First dose (after last modification) on Mon02/05/19 at 2100, For 28 doses, Administer with food., nicotine polacrilex (NICORETTE) gum 2 mg Given 02/05/2019 10:33 AM EST 2 mg 2 mg, Oral, PRN, Smoking cessation, Starting 02/03/19 at 1857, For 30 days risperiDONE (PERSERIS) extended-release Given 02/08/2019 2:36 PM EST 120 mg subcutaneous injection 120 mg 120 mg, Subcutaneous, Once, Mon02/08/19 at 1115, For 1 dose risperidone (RISPERDAL) tablet 1 mg Given 02/08/2019 7:46 AM EST 1 mg 1 mg, Oral, Three Times Daily Standard, First dose on Mon02/06/19 at 1215, For 30 days Given 02/07/2019 8:26 PM EST 1 mg Given 02/07/2019 5:02 PM EST 1 mg documented in this encounter
[2019-02-25 22:08] LABS: Hematocrit 34 % (35-47); Hemoglobin 10.6 g/dL (12.0-16.0); Mean Corpuscular HGB Conc 31 g/dL (31-36); Mean Corpuscular Hemoglobin 21 pg (27-31); Mean Corpuscular Volume 69 fL (80-97); Mean Platelet Volume 8.7 fL (7.4-10.4); Platelet Count 172 10^3/uL (150-450); Red Blood Count 4.96 10^6 /uL (3.70-4.87); Red Cell Distribution Width 27 % (10-15); White Blood Count 7.2 10^3/uL (3.5-10.8)
[2019-02-25 22:18] LABS: Albumin 3.9 g/dL (3.2-5.2); Albumin/Globulin Ratio 1.4 (1-3); BUN/Creatinine Ratio 19.2 (8-20); Calcium 8.9 mg/dL (8.6-10.3); EGFR Non-African American 82.7 (>60); Globulin 2.8 g/dL (2-4); Potassium 3.8 mmol/L (3.5-5.0); Total Bilirubin 0.2 mg/dL (0.2-1.0); Total Protein 6.7 g/dL (6.4-8.9)
[2019-02-25 22:24] LABS: ABS Eosinophils 0.4 10^3/ul (0-0.6); ABS Monocytes 0.5 10^3/ul (0-0.8); ABS Neutrophils 4.3 10^3/ul (1.5-7.7); Eosinophil % 5.1 %; Lymphocyte % 28.4 %; Nucleated Red Blood Cells % 0.1
[2019-02-25] MEDS ORDERED: Albuterol/Ipratropium NEB.SOL* Albuterol 2.5 MG/Ipratropium 0.5 MG 3 ML INH ONE (22:24)
[2019-02-25 22:25] LABS: Microcytosis 2+
[2019-02-25 22:26] LABS: Polychromasia 1+
[2019-02-25] MEDS ORDERED: Magnesium Sulfate 2 GM IV* 2 GM/50 ML BAG IVPB ONE (23:12)
[2019-02-25] MEDS ORDERED: Dexamethasone IV* 4 MG/ML 1 ML (4 MG) IV SLOW PU ONE (23:12)
[2019-02-25] MEDS ORDERED: Benzonatate CAP* 100 MG PO ONE (23:13)
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
[2019-02-25] MEDS ORDERED: hydrOXYzine HCL TAB* 50 MG PO ONE (23:16)
[2019-02-25] MEDS ORDERED: risperiDONE TAB* 1 MG PO ONE (23:16)
[2019-02-26] MEDS ORDERED: Albuterol/Ipratropium NEB.SOL* Albuterol 2.5 MG/Ipratropium 0.5 MG 3 ML INH ONE (00:18)
[2019-02-26 01:04] LABS: Urine Appearance Cloudy; Urine Bilirubin Negative (Negative); Urine Blood Negative (Negative); Urine Color Yellow; Urine Glucose Negative (Negative); Urine Ketones Negative (Negative); Urine Nitrite Negative (Negative); Urine Protein Negative (Negative); Urine Specific Gravity 1.011 (1.010-1.030); Urine Urobilinogen Negative (Negative)
[2019-02-26 01:14] VITALS: BP 92/71
== END 2019-02-26 01:25 | disposition home or self-care (01) ==
LOC: ED 18:44
DX: J45.909 Unspecified asthma, uncomplicated (principal); Z76.0 Encounter for issue of repeat prescription; R09.81 Nasal congestion; I10 Essential (primary) hypertension; F41.9 Anxiety disorder, unspecified; F17.210 Nicotine dependence, cigarettes, uncomplicated; R06.02 Shortness of breath; Z88.0 Allergy status to penicillin
CPT/HCPCS: 36415; 71046; 80053; 81003; 83880; 85025; 96374; 99283; A9270-GY; J1100; J3475

== ENCOUNTER 2019-06-10 13:01 | Emergency (ER) | payer MEDICARE, MEDICAID ==
--- OUTSIDE RECORDS SUMMARY | 2019-06-10 13:17 | XMS REPORT ---
:1980 Author Organization [facility] Care Team Providers Name Role Phone Deepthi Diaz Primary Care Physician Unavailable Allergies, Adverse Reactions, Alerts Allergy Code CodeSystem Reaction Severity Criticality Status Start Substance Date Bactrim unspecified Moderate Active Penicillins unspecified Moderate Active Medications Medication Medication Medication Start Stop Route Dose Status Fill Code CodeSystem Date Date Instructions Latuda 8969594 RxNorm 2019- oral 40 mg 1 completed Take 1 tablet 10-23 tablet by mouth once once a a day for 30 day day(s) Perseris 7444851 RxNorm 2018-02 absq 90 mg 1 active Inject 1 kit -26 suspensi once a month on,exten for 30 day(s) d rel syr kit once a month risperidone 618524 RxNorm 2019-0 oral 2 mg 1 active Take 1 tablet 1-08 tablet at bedtime at for 30 day(s) bedtime diphenhydramine 5055895 RxNorm 2020- oral 50 mg 1 completed Take 1 HCl 11-13 capsule capsule by at mouth at bedtime bedtime as needed for 30 day(s) Latuda 4505214 RxNorm 2019- oral 40 mg completed for 18 09- tablet day(s) hydroxyzine HCl 826018 RxNorm 2019-0 2020- oral 50 mg completed for 02-26- tablet day(s) hydroxyzine HCl 785369 RxNorm 2020-0 oral 50 mg 1 active Take 1 tablet 1-21 tablet by mouth twice a twice a day day as needed for 30 day(s) Latuda 3592781 RxNorm 2019-0 oral 40 mg active for 10-23 tablet day(s) Latuda 9333167 RxNorm 2019- oral 20 mg 1 completed Take 1 tablet 08-28 tablet by mouth once once a a day for 30 day day(s) Problems Problem Name Code CodeSystem Alternate Alternate Start End Status Narrative Code CodeSystem Date Date Schizoaffective [id number] SNOMED-CT Active disorder, manic 3-22 type Post-traumatic [id number] SNOMED-CT 2019- Active stress disorder, 6-07 unspecified Schizoaffective [id number] SNOMED-CT Active disorder, manic 3-22 type Schizoaffective 44991957 SNOMED-CT Active disorder, manic 3-22 type Relevant diagnostic tests/laboratory data Narrative No Information Procedures Procedure Code CodeSystem Target Date of Status Service Device Device Device Name Site Procedure Delivery Code Name UID Location SNOMED-CT () 2019-01-22 complete Mental d Health- [address], [id number] SNOMED-CT () 2019-04-07 complete Mental d Health- [address], [id number] Psychotherap [id number] SNOMED-CT () 2018-12-10 complete Mental y, 45 04 d Health- minutes with [facility] patient [address], [id number] [id number] SNOMED-CT () 2018-11-09 complete Mental d Health- [address], [id number] Preventive [id number] SNOMED-CT () 2019-03-14 complete Mental medicine 0 d Health- counseling [facility] and/or risk [address], (s) provided [place], to an [place], individual [id number] (separate [id number] procedure); approximatel y 15 minutes SNOMED-CT () 2019-02-27 complete Mental d Health- [address], [id number] [phone] Office or [id number] SNOMED-CT () 2018-10-23 complete Mental other 6 d Health- outpatient [facility] visit for [address], management [place], of an [place], established [id number] patient, [id number] which requires at least 2 of these 3 padilla components: A problem focused history; A problem focused examination; [place] amor medical decision making. Counselin Psychotherap [id number] SNOMED-CT () 2018-08-09 complete Mental y, 45 04 d Health- minutes with [facility] patient [address], [id number] [phone] SNOMED-CT () 2019-03-20 complete Mental d Health- [address], [id number] [id number] Comprehensiv [id number] SNOMED-CT () 2019-04-18 complete Mental e medication 0 d Health- services, [facility] per [address] minutes [address] [place] [address], [id number] [phone] SNOMED-CT () 2018-07-03 complete Mental d Health- [address], [id number] [phone] Psychotherap [id number] SNOMED-CT () 2018-07-12 complete Mental y, 45 04 d Health- minutes with [facility] patient [address], [id number] [phone] Psychotherap [id number] SNOMED-CT () 2018-11-13 complete Mental y, 45 04 d Health- minutes with [facility] patient [address], [id number] [phone] Office or [id number] SNOMED-CT () 2018-08-28 complete Mental other 6 d Health- outpatient [facility] visit for [address], of an [place], established [id number] patient, [id number] which requires at least 2 of these 3 padilla components: A problem focused history; A problem focused examination; Straight[place] amor medical decision making. Counselin SNOMED-CT () 2018-06-25 complete Mental d Health- [facility], [id number] [phone] Comprehensiv [id number] SNOMED-CT () 2019-03-14 complete Mental e medication 0 d Health- services, [facility] per [address] [place] minutes [address] [place] [address], [id number] [phone] SNOMED-CT () 2018-10-23 complete Mental d Health- [address], [id number] [phone] SNOMED-CT () 2018-06-14 complete Mental d Health- [address], [id number] [id number] SNOMED-CT () 2019-04-18 complete Mental d Health- [address], [id number] [phone] Office or [id number] SNOMED-CT () 2019-03-12 complete Mental other 6 d Health- outpatient [facility] visit for [address], management [place], of an [place], established [id number] patient, [phone] which requires at least 2 of these 3 padilla components: A problem focused history; A problem focused examination; Straightfor[place] amor medical decision making. Counselin Encounters/Encounter Diagnoses Encounter Encounter Diagnosis Diagnosis Name Diagnosis Date of Service Name Code Code CodeSystem Diagnosis Delivery Location Non-[facility] [id number] Schizoaffective SNOMED-CT 2019-03-28 Behavioral e disorder, manic Health type Clinic , , , Vital Signs No Information Social History Element Description Description Start End Code CodeSystem AdditionalInfo Date Date SexAssignedAtBirth Female F AdministrativeGender 10-21 Hospital Discharge Instructions Reason For Referral Medical Equipment FDA Assessments
--- OUTSIDE RECORDS SUMMARY | 2019-06-10 13:17 | XMS REPORT ---
:1980 Author Organization [facility] Care Team Providers Name Role Phone Deepthi Diaz Primary Care Physician Unavailable Allergies, Adverse Reactions, Alerts Allergy Code CodeSystem Reaction Severity Criticality Status Start Substance Date Bactrim unspecified Moderate Active Penicillins unspecified Moderate Active Medications Medication Medication Medication Start Stop Route Dose Status Fill Code CodeSystem Date Date Instructions risperidone 822646 RxNorm 2019-0 oral 2 mg 1 active Take 1 tablet 1-08 tablet at bedtime at for 30 day(s) bedtime diphenhydramine 5584323 RxNorm 2020- oral 50 mg 1 completed Take 1 HCl 11-13 capsule capsule by at mouth at bedtime bedtime as needed for 30 day(s) Latuda 9614723 RxNorm 2019- oral 20 mg 1 completed Take 1 tablet 08-28- tablet by mouth once once a a day for 30 day day(s) Latuda 6866540 RxNorm 2019- oral 40 mg completed for 30 - tablet day(s) hydroxyzine HCl 592013 RxNorm 2019-0 2020- oral 50 mg completed for 02-26- tablet day(s) Latuda 2851871 RxNorm 0 2019- oral 40 mg 1 completed Take 1 tablet 10-23- tablet by mouth once once a a day for 30 day day(s) Perseris 2387992 RxNorm 2018-02 absq 90 mg 1 active Inject 1 kit - suspensi once a month on,exten for 30 day(s) d rel syr kit once a month Latuda 1486251 RxNorm 2019-0 oral 40 mg active for 30 - tablet day(s) hydroxyzine HCl 689003 RxNorm 2019-0 oral 50 mg 1 active Take 1 tablet 1-21 tablet by mouth twice a twice a day day as needed for 30 day(s) Problems Problem Name Code CodeSystem Alternate Alternate Start End Status Narrative Code CodeSystem Date Date Post-traumatic [id number] SNOMED-CT Active stress disorder, 6-07 unspecified Schizoaffective 08801806 SNOMED-CT Active disorder, manic 3-22 type Schizoaffective 57044317 SNOMED-CT Active disorder, manic 3-22 type Schizoaffective 66634304 SNOMED-CT Active disorder, manic 3-22 type Relevant diagnostic tests/laboratory data Narrative No Information Procedures Procedure Code CodeSystem Target Date of Status Service Device Device Device Name Site Procedure Delivery Code Name UID Location Office or [id number] SNOMED-CT () 2019-03-12 complete Mental other 6 d Health- outpatient [facility] visit for [address], established [id number] patient, [id number] which requires at least 2 of these 3 padilla components: A problem focused history; A problem focused examination; Straightforw amor medical decision making. Hardik SNOMED-CT () 2019-01-22 complete Mental d Health- [address], [id number] SNOMED-CT () 2019-04-07 complete Mental d Health- [address], [id number] [phone] Office or [id number] SNOMED-CT () 2018-08-28 complete Mental other 6 d Health- outpatient [facility] visit for [address], established [id number] patient, [id number] which requires at least 2 of these 3 padilla components: A problem focused history; A problem focused examination; Straightforw amor medical decision making. Counselin Comprehensiv [id number] SNOMED-CT () 2019-03-14 complete Mental e medication 0 d Health- services, [facility] [address], [id number] [id number] SNOMED-CT () 2018-06-25 complete Mental d Health- [address], [id number] [phone] SNOMED-CT () 2018-10-23 complete Mental d Health- [address], [id number] [id number] Psychotherap [id number] SNOMED-CT () 2018-12-10 complete Mental y, 45 04 d Health- minutes with [address], [id number] [phone] SNOMED-CT () 2019-02-27 complete Mental d Health- [address], [id number] [phone] Preventive [id number] SNOMED-CT () 2019-03-14 complete Mental medicine 0 d Health- counseling [facility] and/or [address], (s) provided [place], to [place], individual [id number] (separate [id number] procedure); approximatel y 15 minutes Office or [id number] SNOMED-CT () 2018-10-23 complete Mental other 6 d Health- outpatient [facility] visit for [address], management [place], of [place], established [id number] patient, [id number] which requires at least 2 of these 3 padilla components: A problem focused history; A problem focused examination; Straightforw amor medical decision making. Counselin SNOMED-CT () 2018-11-09 complete Mental d Health- [address], [id number] [phone] SNOMED-CT () 2018-07-03 complete Mental d Health- [address], [id number] [phone] Psychotherap [id number] SNOMED-CT () 2018-07-12 complete Mental y, 45 04 d Health- minutes with [facility] patient [address], [id number] [phone] Psychotherap [id number] SNOMED-CT () 2018-11-13 complete Mental y, 45 04 d Health- minutes with [address], [id number] [phone] SNOMED-CT () 2018-06-14 complete Mental d Health- [address], [id number] [id number] Psychotherap [id number] SNOMED-CT () 2018-08-09 complete Mental y, 45 04 d Health- minutes with [facility] patient [address], [id number] [phone] SNOMED-CT () 2019-03-20 complete Mental d Health- [address], [id number] [phone] Encounters/Encounter Diagnoses Encounter Encounter Diagnosis Diagnosis Name Diagnosis Date of Service Name Code Code CodeSystem Diagnosis Delivery Location Non-[facility] [id number] Schizoaffective SNOMED-CT 2019-03-28 Behavioral e disorder, manic Health type Clinic , , , Vital Signs No Information Social History Element Description Description Start End Code CodeSystem AdditionalInfo Date Date SexAssignedAtBirth Female F AdministrativeGender 10-21 Hospital Discharge Instructions Reason For Referral Medical Equipment FDA Assessments
[2019-06-10] MEDS ORDERED: Tetan/Diph/Pertus SYR(Tdap)* 0.5 ML SYR(BOOSTRIX) use SYR contains LATEX IM ONE (13:23)
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
[2019-06-10 16:18] VITALS: BP 139/82
== END 2019-06-10 16:10 | disposition home or self-care (01) ==
LOC: ED 13:01
DX: R45.851 Suicidal ideations (principal); I10 Essential (primary) hypertension; F41.9 Anxiety disorder, unspecified; F32.9 Major depressive disorder, single episode, unspecified; F17.210 Nicotine dependence, cigarettes, uncomplicated; Z88.0 Allergy status to penicillin; Z88.2 Allergy status to sulfonamides; Z79.82 Long term (current) use of aspirin; Z79.899 Other long term (current) drug therapy; Z98.51 Tubal ligation status
CPT/HCPCS: 99285

== ENCOUNTER 2019-10-03 11:27 | Inpatient (IN) ==
[2019-10-03 12:23] LABS: ABS Basophils 0.1 10^3/ul (0-0.2); ABS Eosinophils 0.6 10^3/ul (0-0.6); ABS Lymphocytes 1.6 10^3/ul (1.0-4.8); ABS Monocytes 0.4 10^3/ul (0-0.8); ABS Neutrophils 3.7 10^3/ul (1.5-7.7); Eosinophil % 8.6 %; Hematocrit 35 % (35-47); Hemoglobin 11.5 g/dL (12.0-16.0); Lymphocyte % 25.7 %; Mean Corpuscular HGB Conc 33 g/dL (31-36); Mean Corpuscular Hemoglobin 24 pg (27-31); Mean Corpuscular Volume 73 fL (80-97); Platelet Count 160 10^3/uL (150-450); Red Blood Count 4.78 10^6 /uL (3.70-4.87); Red Cell Distribution Width 18 % (10-15); White Blood Count 6.4 10^3/uL (3.5-10.8)
[2019-10-03 12:34] LABS: ALT 11 U/L (7-52); AST 14 U/L (13-39); Albumin 3.9 g/dL (3.2-5.2); Albumin/Globulin Ratio 1.3 (1-3); Alkaline Phosphatase 88 U/L (34-104); Anion Gap 4 mmol/L (2-11); BUN/Creatinine Ratio 20.7 (8-20); Blood Urea Nitrogen 17 mg/dL (6-24); CO2 Carbon Dioxide 26 mmol/L (22-32); Calcium 9.1 mg/dL (8.6-10.3); Chloride 107 mmol/L (101-111); EGFR African American 94.4 (>60); Globulin 2.9 g/dL (2-4); Glucose 95 mg/dL (70-100); Sodium 137 mmol/L (135-145); Total Protein 6.8 g/dL (6.4-8.9); Urine Benzodiazepine Screen None Detected (None Detect); Urine Cannabinoids Screen Presumptive Positive (None Detect); Urine Opiates Screen None Detected (None Detect)
[2019-10-03 12:40] LABS: HCG Pregnancy < 0.60 mIU/mL
[2019-10-03 13:13] LABS: Acetaminophen < 15 mcg/mL; Alcohol, S < 10 mg/dL (<10); Salicylate < 2.50 mg/dL (<30)
[2019-10-03 13:15] LABS: TSH Ultra Thyroid Stim Horm 0.72 mcIU/mL (0.34-5.60)
[2019-10-03] MEDS ORDERED: Al Hydrox/Mg Hydrox/Simet LIQ 30 ML UDC PO PRN (13:58)
[2019-10-03] MEDS ORDERED: Albuterol HFA INHALER 8 gm MDI INH PRN (15:14)
[2019-10-03] MEDS: Mometasone/Formoter 100/5 MDI INH SCH (20:43)
[2019-10-04] MEDS: Mometasone/Formoter 100/5 MDI INH SCH ×2 (08:50→20:31)
[2019-10-04 10:55] LABS: Urine Appearance Clear; Urine Bilirubin Negative (Negative); Urine Blood Negative (Negative); Urine Color Yellow; Urine Glucose Negative (Negative); Urine Ketones Negative (Negative); Urine Nitrite Negative (Negative); Urine Protein Negative (Negative); Urine Specific Gravity 1.018 (1.010-1.030); Urine Urobilinogen Negative (Negative)
[2019-10-05] MEDS: Mometasone/Formoter 100/5 MDI INH SCH ×2 (07:47→20:37)
[2019-10-06] MEDS: Mometasone/Formoter 100/5 MDI INH SCH ×2 (10:04→20:31)
[2019-10-07] MEDS: Mometasone/Formoter 100/5 MDI INH SCH (08:03)
[2019-10-07 11:33] VITALS: BP 140/87
== END 2019-10-07 13:00 | disposition home or self-care (01) | DRG 885 ==
LOC: ED 11:27 → BSU 13:58
PROVIDERS: ADMIT Psychiatry & Neurology Psychiatry; ATTEND Psychiatry & Neurology Psychiatry

== ENCOUNTER 2020-03-19 11:49 | Inpatient (IN) ==
[2020-03-19 13:11] LABS: ABS Basophils 0.1 10^3/ul (0-0.2); ABS Eosinophils 0.5 10^3/ul (0-0.6); ABS Lymphocytes 2.1 10^3/ul (1.0-4.8); ABS Monocytes 0.5 10^3/ul (0-0.8); ABS Neutrophils 4.2 10^3/ul (1.5-7.7); Eosinophil % 7.2 %; Hematocrit 33 % (35-47); Hemoglobin 10.2 g/dL (12.0-16.0); Lymphocyte % 28.6 %; Mean Corpuscular HGB Conc 31 g/dL (31-36); Mean Corpuscular Hemoglobin 21 pg (27-31); Mean Corpuscular Volume 67 fL (80-97); Mean Platelet Volume 8.6 fL (7.4-10.4); Platelet Count 220 10^3/uL (150-450); Red Blood Count 4.89 10^6 /uL (3.70-4.87); Red Cell Distribution Width 18 % (10-15); White Blood Count 7.3 10^3/uL (3.5-10.8)
[2020-03-19 13:31] LABS: ALT 11 U/L (7-52); AST 16 U/L (13-39); Albumin 4.1 g/dL (3.2-5.2); Albumin/Globulin Ratio 1.3 (1-3); Alkaline Phosphatase 112 U/L (34-104); Anion Gap 6 mmol/L (2-11); BUN/Creatinine Ratio 15.3 (8-20); Blood Urea Nitrogen 13 mg/dL (6-24); CO2 Carbon Dioxide 25 mmol/L (22-32); Calcium 9.5 mg/dL (8.6-10.3); Chloride 105 mmol/L (101-111); EGFR African American 90.1 (>60); EGFR Non-African American 74.5 (>60); Globulin 3.2 g/dL (2-4); Glucose 87 mg/dL (70-100); Potassium 4.2 mmol/L (3.5-5.0); Sodium 136 mmol/L (135-145); Total Protein 7.3 g/dL (6.4-8.9)
[2020-03-19 13:33] LABS: Urine Benzodiazepine Screen None Detected (None Detect); Urine Cannabinoids Screen Presumptive Positive (None Detect); Urine Opiates Screen None Detected (None Detect)
[2020-03-19 13:34] LABS: Urine Appearance Clear; Urine Color Yellow; Urine Specific Gravity 1.025 (1.010-1.030)
[2020-03-19 13:35] LABS: Urine Bilirubin Negative (Negative); Urine Blood 2+ (Negative); Urine Glucose Negative (Negative); Urine Ketones Negative (Negative); Urine Nitrite Negative (Negative); Urine Protein Negative (Negative)
[2020-03-19 13:36] LABS: Urine Urobilinogen Negative (Negative)
[2020-03-19 13:40] LABS: Urine Bacteria Absent (Absent); Urine Red Blood Cell Trace(0-2/hpf) (Absent); Urine Squamous Epithelial Cell Present (Absent); Urine White Blood Cell Trace(0-5/hpf) (Absent)
[2020-03-19 13:43] LABS: Acetaminophen < 15 mcg/mL; Alcohol, S < 10 mg/dL (<10); Salicylate < 2.50 mg/dL (<30)
[2020-03-19 13:56] LABS: TSH Ultra Thyroid Stim Horm 1.15 mcIU/mL (0.34-5.60)
[2020-03-19] MEDS ORDERED: Al Hydrox/Mg Hydrox/Simet LIQ 30 ML UDC PO PRN (15:01)
[2020-03-19 15:35] LABS: HCG Pregnancy < 0.60 mIU/mL
[2020-03-19] MEDS ORDERED: Albuterol HFA INHALER 8 gm MDI INH PRN (17:48)
[2020-03-19] MEDS ORDERED: Mometasone/Formoter 100/5 MDI INH PRN (17:49)
[2020-03-19] MEDS: Vitamin THERAPEUTIC TAB PO SCH (20:13)
[2020-03-20] MEDS: Vitamin THERAPEUTIC TAB PO SCH (09:11)
[2020-03-20 09:17] VITALS: BP 126/78
== END 2020-03-20 13:00 | disposition home or self-care (01) | DRG 882 ==
LOC: ED 11:49 → BSU 15:01
PROVIDERS: ADMIT Psychiatry & Neurology Psychiatry; ATTEND Psychiatry & Neurology Psychiatry

== ENCOUNTER 2020-11-04 19:20 | Inpatient (IN) ==
[2020-11-04 20:41] LABS: ABS Basophils 0.1 10^3/ul (0-0.2); ABS Eosinophils 0.5 10^3/ul (0-0.6); ABS Lymphocytes 2.1 10^3/ul (1.0-4.8); ABS Monocytes 0.4 10^3/ul (0-0.8); ABS Neutrophils 5.2 10^3/ul (1.5-7.7); Eosinophil % 6.1 %; Hematocrit 27 % (35-47); Hemoglobin 8.3 g/dL (12.0-16.0); Lymphocyte % 25.6 %; Mean Corpuscular HGB Conc 31 g/dL (31-36); Mean Corpuscular Hemoglobin 18 pg (27-31); Mean Corpuscular Volume 60 fL (80-97); Mean Platelet Volume 8.6 fL (7.4-10.4); Platelet Count 165 10^3/uL (150-450); Red Blood Count 4.54 10^6 /uL (3.70-4.87); Red Cell Distribution Width 19 % (10-15); White Blood Count 8.4 10^3/uL (3.5-10.8)
[2020-11-04 20:44] LABS: Urine Appearance Cloudy; Urine Bilirubin Negative (Negative); Urine Blood 1+ (Negative); Urine Color Yellow; Urine Glucose Negative (Negative); Urine Ketones Negative (Negative); Urine Nitrite Negative (Negative); Urine Protein Negative (Negative); Urine Specific Gravity 1.019 (1.002-1.030); Urine Urobilinogen Negative (Negative)
[2020-11-04 20:53] LABS: Urine Amorphous Crystals Present (Absent); Urine Bacteria 1+ (Absent); Urine Red Blood Cell 2+(6-10/hpf) (Absent); Urine Squamous Epithelial Cell Present (Absent); Urine White Blood Cell 3+(>20/hpf) (Absent)
[2020-11-04 21:00] LABS: ALT 9 U/L (7-52); AST 14 U/L (13-39); Albumin/Globulin Ratio 1.4 (1-3); Alkaline Phosphatase 104 U/L (35-149); Anion Gap 6 mmol/L (2-11); Blood Urea Nitrogen 17 mg/dL (6-24); CO2 Carbon Dioxide 25 mmol/L (22-32); Calcium 8.7 mg/dL (8.6-10.3); Chloride 106 mmol/L (101-111); EGFR African American 76.1 (>60); EGFR Non-African American 62.9 (>60); Globulin 2.9 g/dL (2-4); Glucose 82 mg/dL (70-100); Potassium 3.6 mmol/L (3.5-5.0); Sodium 137 mmol/L (135-145); Total Protein 6.9 g/dL (6.4-8.9)
[2020-11-04 21:03] LABS: Urine Benzodiazepine Screen None Detected (None Detect); Urine Cannabinoids Screen Presumptive Positive (None Detect); Urine Opiates Screen None Detected (None Detect)
[2020-11-04 21:05] LABS: HCG Pregnancy < 0.60 mIU/mL
[2020-11-04 21:26] LABS: Acetaminophen < 15 mcg/mL; Alcohol, S < 13 mg/dL (<13); Salicylate < 2.50 mg/dL (<30)
[2020-11-04 21:42] LABS: TSH Ultra Thyroid Stim Horm 3.71 mcIU/mL (0.34-5.60)
[2020-11-04] MEDS ORDERED: Nitrofurantoin (monohydrate/macrocrystals) 100 mg CAP PO ONE (21:48)
[2020-11-05 06:06] LABS: Rapid COVID-19 Molecular Undetected (Undetected)
[2020-11-05] MEDS ORDERED: Al Hydrox/Mg Hydrox/Simet LIQ 30 ML UDC PO PRN (06:48)
[2020-11-05] MEDS ORDERED: Albuterol HFA INHALER 8 gm MDI INH PRN (06:51)
[2020-11-05] MEDS ORDERED: Nicotine GUM 2MG FRUIT FLAVOR PO PRN (07:00)
[2020-11-05] MEDS: Vitamin THERAPEUTIC TAB PO SCH (10:09)
[2020-11-05] MEDS: Nicotine PATCH 21 MG/24 HR PATCH TRANSDERM SCH ×2 (10:09→10:10)
[2020-11-05] MEDS: Nitrofurantoin (monohydrate/macrocrystals) 100 mg CAP PO SCH ×2 (10:09→21:31)
[2020-11-06] MEDS: Vitamin THERAPEUTIC TAB PO SCH (08:14)
[2020-11-06] MEDS: Nicotine PATCH 21 MG/24 HR PATCH TRANSDERM SCH (08:14)
[2020-11-06] MEDS: Nitrofurantoin (monohydrate/macrocrystals) 100 mg CAP PO SCH (08:15)
[2020-11-06 08:56] VITALS: BP 137/84
== END 2020-11-06 11:27 | disposition home or self-care (01) | DRG 882 ==
LOC: ED 19:20 → BSU 11-05 06:45
PROVIDERS: ADMIT Psychiatry & Neurology Psychiatry; ATTEND Psychiatry & Neurology Psychiatry

== ENCOUNTER 2021-04-06 23:53 | Inpatient (IN) ==
[2021-04-07 00:37] LABS: Urine Appearance Clear; Urine Bilirubin Negative (Negative); Urine Blood 1+ (Negative); Urine Color Straw; Urine Glucose Negative (Negative); Urine Ketones Negative (Negative); Urine Nitrite Negative (Negative); Urine Protein Negative (Negative); Urine Specific Gravity 1.004 (1.002-1.030); Urine Urobilinogen Negative (Negative)
[2021-04-07 00:50] LABS: Urine Bacteria 1+ (Absent); Urine Benzodiazepine Screen None Detected (None Detect); Urine Cannabinoids Screen Presumptive Positive (None Detect); Urine Opiates Screen None Detected (None Detect); Urine Red Blood Cell Trace(0-2/hpf) (Absent); Urine Squamous Epithelial Cell Present (Absent); Urine White Blood Cell Trace(0-5/hpf) (Absent)
[2021-04-07 00:50] LABS: ABS Basophils 0.1 10^3/ul (0-0.2); ABS Eosinophils 0.3 10^3/ul (0-0.6); ABS Lymphocytes 1.7 10^3/ul (1.0-4.8); ABS Monocytes 0.4 10^3/ul (0-0.8); ABS Neutrophils 6.1 10^3/ul (1.5-7.7); Eosinophil % 3.8 %; Hematocrit 28 % (35-47); Hemoglobin 8.1 g/dL (12.0-16.0); Lymphocyte % 19.1 %; Mean Corpuscular HGB Conc 29 g/dL (31-36); Mean Corpuscular Hemoglobin 17 pg (27-31); Mean Corpuscular Volume 60 fL (80-97); Mean Platelet Volume 8.6 fL (7.4-10.4); Nucleated Red Blood Cells % 0.1; Platelet Count 160 10^3/uL (150-450); Red Blood Count 4.69 10^6 /uL (3.70-4.87); Red Cell Distribution Width 21 % (10-15); White Blood Count 8.7 10^3/uL (3.5-10.8)
[2021-04-07 00:52] LABS: ALT 11 U/L (7-52); AST 17 U/L (13-39); Albumin 4.4 g/dL (3.2-5.2); Albumin/Globulin Ratio 1.3 (1-3); Alkaline Phosphatase 104 U/L (35-149); Anion Gap 9 mmol/L (2-11); Blood Urea Nitrogen 11 mg/dL (6-24); CO2 Carbon Dioxide 22 mmol/L (22-32); Calcium 9.7 mg/dL (8.6-10.3); Chloride 105 mmol/L (101-111); Globulin 3.5 g/dL (2-4); Glucose 91 mg/dL (70-100); Potassium 3.4 mmol/L (3.5-5.0); Sodium 136 mmol/L (135-145); Total Protein 7.9 g/dL (6.4-8.9); eGFR CKD-EPI 112.1 (>60)
[2021-04-07 00:58] LABS: HCG Pregnancy 0.61 mIU/mL
[2021-04-07 01:04] LABS: Acetaminophen < 15 mcg/mL; Alcohol, S < 13 mg/dL (<13)
[2021-04-07 01:05] LABS: Salicylate < 2.50 mg/dL (<30)
[2021-04-07 01:19] LABS: TSH Ultra Thyroid Stim Horm 6.72 mcIU/mL (0.34-5.60)
[2021-04-07] MEDS ORDERED: Al Hydrox/Mg Hydrox/Simet LIQ 30 ML UDC PO PRN (06:07)
[2021-04-07] MEDS ORDERED: Albuterol HFA INHALER 8 gm MDI INH PRN (06:14)
[2021-04-07] MEDS ORDERED: Nicotine GUM 2MG FRUIT FLAVOR PO PRN (07:00)
[2021-04-07] MEDS ORDERED: Nicotine PATCH 21 MG/24 HR PATCH TRANSDERM SCH (09:00)
[2021-04-07 09:27] LABS: T4, Total 10.57 mcg/dL (6.09-12.23); Total Iron Binding Capacity 468 mcg/dL (250-450); Transferrin 334 mg/dL (203-362)
[2021-04-07 09:28] LABS: % Iron Saturation 4 % (15-55); Iron < 20 ug/dL (50-212); Unsaturated Iron Binding 448 ug/dL
[2021-04-07] MEDS: Vitamin THERAPEUTIC TAB PO SCH (09:34)
[2021-04-07 09:41] LABS: Vitamin B12 245 pg/mL (180-914)
[2021-04-07 09:47] LABS: Ferritin 2.7 ng/mL (11-307)
[2021-04-07 09:51] LABS: Folate > 20.00 ng/mL (5.90-24.80)
[2021-04-07] MEDS ORDERED: Potassium Chlor 20 meq TAB.ER PO ONE (10:52)
[2021-04-07] MEDS ORDERED: Potassium Chlor 10 meq TAB PO ONE (11:00)
[2021-04-07 11:03] LABS: Free T4 0.73 ng/dL (0.61-1.12)
[2021-04-07] MEDS ORDERED: chlorproMAZINE TAB 50 MG Q6H PRN AGITATION PO SCH (21:00)
[2021-04-08 08:20] VITALS: BP 122/64
[2021-04-08] MEDS: Vitamin THERAPEUTIC TAB PO SCH (09:36)
== END 2021-04-08 11:38 | disposition home or self-care (01) | DRG 812 ==
LOC: ED 23:53 → BSU 04-07 04:52
PROVIDERS: ADMIT Psychiatry & Neurology Psychiatry; ATTEND Psychiatry & Neurology Psychiatry

== ENCOUNTER 2023-11-07 22:26 | Inpatient (IN) ==
[2023-11-07 23:48] LABS: Urine Appearance Clear; Urine Bilirubin Negative (Negative); Urine Blood Negative (Negative); Urine Color Yellow; Urine Glucose Negative (Negative); Urine Ketones Trace (Negative); Urine Nitrite Negative (Negative); Urine Protein Trace (Negative); Urine Specific Gravity 1.029 (1.002-1.030); Urine Urobilinogen 1+ (Negative); Urine pH 6.5 (5.0-8.0)
[2023-11-08 00:02] LABS: Urine Benzodiazepine Screen None Detected (None Detect); Urine Cannabinoids Screen Presumptive Positive (None Detect); Urine Opiates Screen None Detected (None Detect)
[2023-11-08 00:03] LABS: Urine Bacteria Absent /HPF (Absent); Urine Red Blood Cell Absent /HPF (0-Trace); Urine Squamous Epithelial Cell Present /HPF (Absent); Urine White Blood Cell 1+(6-10/hpf) /HPF (0-Trace)
[2023-11-08 00:13] LABS: ABS Basophils 0.1 10^3/uL (0.0-0.1); ABS Eosinophils 0.3 10^3/uL (0.0-0.5); ABS Lymphocytes 1.9 10^3/uL (1.0-4.8); ABS Monocytes 0.4 10^3/uL (0.0-0.9); ABS Neutrophils 4.9 10^3/uL (1.5-7.6); Eosinophil % 3.9 %; Hematocrit 26.2 % (35-45); Hemoglobin 7.5 g/dL (11.5-14.3); Lymphocyte % 24.9 %; Mean Corpuscular Hemoglobin 17.4 pg (27-33); Mean Corpuscular Hgb Conc 28.6 g/dL (31-36); Mean Corpuscular Volume 60.9 fL (80-97); Mean Platelet Volume 8.8 fL (7.5-11.2); Platelet Count 157 10^3/uL (150-450); Red Blood Count 4.31 10^6/uL (3.63-4.92); White Blood Count 7.6 10^3/uL (3.8-11.8)
[2023-11-08 00:24] LABS: ALT 11 U/L (7-52); AST 17 U/L (13-39); Acetaminophen < 15 mcg/mL; Albumin 4.1 g/dL (3.2-5.2); Albumin/Globulin Ratio 1.5 (1-3); Alcohol, S < 13 mg/dL (<13); Alkaline Phosphatase 101 U/L (35-149); Anion Gap 6 mmol/L (2-16); Blood Urea Nitrogen 14 mg/dL (6-24); CO2 Carbon Dioxide 27 mmol/L (22-32); Calcium 8.7 mg/dL (8.6-10.3); Chloride 105 mmol/L (101-111); Creatinine, Serum 0.82 mg/dL (0.51-0.95); Globulin 2.7 g/dL (2-4); Glucose 87 mg/dL (70-100); Potassium 4.6 mmol/L (3.5-5.0); Salicylate < 2.50 mg/dL (<30); Sodium 138 mmol/L (135-145); Total Bilirubin 0.3 mg/dL (0.2-1.0); Total Protein 6.8 g/dL (6.4-8.9)
[2023-11-08 00:39] LABS: TSH Ultra Thyroid Stim Horm 1.12 mcIU/mL (0.34-5.60)
[2023-11-08] MEDS ORDERED: Al Hydrox/Mg Hydrox/Simet LIQ 30 ML UDC PO PRN (11:25)
[2023-11-08] MEDS ORDERED: Albuterol HFA INHALER 8 gm MDI INH PRN (11:31)
[2023-11-09 11:15] VITALS: BP 130/84
== END 2023-11-09 14:35 | disposition home or self-care (01) | DRG 883 ==
LOC: ED 22:26 → EDHOLD 11-08 11:25 → BSU 11-08 11:25
PROVIDERS: ADMIT Psychiatry & Neurology Psychiatry; ATTEND Psychiatry & Neurology Psychiatry

== ENCOUNTER 2024-03-14 16:34 | Inpatient (IN) ==
[2024-03-14 17:53] LABS: Urine Appearance Clear; Urine Bilirubin Negative (Negative); Urine Blood Negative (Negative); Urine Color Colorless; Urine Glucose Negative (Negative); Urine Ketones Negative (Negative); Urine Nitrite Negative (Negative); Urine Protein Negative (Negative); Urine Specific Gravity 1.002 (1.002-1.030); Urine Urobilinogen Negative (Negative)
[2024-03-14 18:08] LABS: Urine Benzodiazepine Screen None Detected (None Detect); Urine Cannabinoids Screen Presumptive Positive (None Detect); Urine Opiates Screen None Detected (None Detect)
[2024-03-14 18:12] LABS: ALT 10 U/L (7-52); AST 15 U/L (13-39); Acetaminophen < 15 mcg/mL; Albumin 4.3 g/dL (3.5-5.7); Albumin/Globulin Ratio 1.5 (1-3); Alcohol, S < 13 mg/dL (<13); Alkaline Phosphatase 106 U/L (35-149); Anion Gap 9 mmol/L (2-16); Blood Urea Nitrogen 12 mg/dL (6-24); CO2 Carbon Dioxide 29 mmol/L (22-32); Calcium 9.3 mg/dL (8.6-10.3); Chloride 103 mmol/L (101-111); Creatinine, Serum 0.85 mg/dL (0.51-0.95); Globulin 2.8 g/dL (2-4); Glucose 85 mg/dL (70-100); Salicylate < 2.50 mg/dL (<30); Sodium 141 mmol/L (135-145); Total Bilirubin 0.3 mg/dL (0.2-1.0); Total Protein 7.1 g/dL (6.4-8.9); eGFR CKD-EPI 87.1 (>60)
[2024-03-14 18:18] LABS: HCG Pregnancy < 0.60 mIU/mL
[2024-03-14 18:24] LABS: ABS Basophils 0.2 10^3/uL (0.0-0.1); ABS Eosinophils 0.5 10^3/uL (0.0-0.5); ABS Lymphocytes 1.8 10^3/uL (1.0-4.8); ABS Monocytes 0.3 10^3/uL (0.0-0.9); ABS Neutrophils 2.8 10^3/uL (1.5-7.6); Anisocytosis 2+; Eosinophil % 8.8 %; Hematocrit 35.8 % (35-45); Hypochromasia 2+; Lymphocyte % 31.9 %; Mean Corpuscular Hemoglobin 21.8 pg (27-33); Mean Corpuscular Hgb Conc 30.7 g/dL (31-36); Mean Corpuscular Volume 70.9 fL (80-97); Mean Platelet Volume 8.7 fL (7.5-11.2); Microcytosis 2+; Platelet Count 185 10^3/uL (150-450); Polychromasia 1+; Red Blood Count 5.04 10^6/uL (3.63-4.92); Red Cell Distribution Width 28.8 % (12-17); Tear Drop Cells 1+; White Blood Count 5.7 10^3/uL (3.8-11.8)
[2024-03-14 18:25] LABS: TSH Ultra Thyroid Stim Horm 2.49 mcIU/mL (0.34-5.60)
[2024-03-14] MEDS ORDERED: Al Hydrox/Mg Hydrox/Simet LIQ 30 ML UDC PO PRN (20:51)
[2024-03-15 08:00] LABS: HDL Cholesterol 36.3 mg/dL
[2024-03-15] MEDS: Vitamin THERAPEUTIC TAB PO SCH (08:39)
[2024-03-18 10:07] VITALS: BP 116/66
== END 2024-03-18 13:45 | disposition home or self-care (01) | DRG 885 ==
LOC: ED 16:34 → BSU 20:51
PROVIDERS: ADMIT Psychiatry & Neurology Psychiatry; ATTEND Student in an Organized Health Care Education/Training Program